=== PATIENT | female | born 1950 | race Caucasian/White ===

== ENCOUNTER 2017-12-25 08:30 | Outpatient (RCR) | payer OTHER, SELFPAY ==
--- NOTE | 2017-12-19 08:00 | IE_ITS ---
Date: December 19, 2017 Referring: LICHA Hayes M.D. Diagnosis: Back pain P.T. Diagnosis: Same SUBJECTIVE: History of Present Illness: Marianne complains of intermittent discomfort throughout the lower lumbar area. This migrates to the pelvic brim bilaterally. This is generally worse with weight bearing activities, but is also presence in sitting. Best with lying. Does not generally interfere with sleeping pattern. Has some mild a.m. stiffness, but her symptoms are generally worse towards the latter part of the day. A 67 year old female with spinal stenosis, s/p laminectomy/discectomy in December of 2016. This made a significant difference in her symptoms, until she fell in March, had some mild lumbago following this, but then it resolves after a week or so. She fell again in May when slipping on ice and went through the same routine, although back pain lasted for a couple weeks this time. In June, she started developing an insidious onset of lumbago and gradually intensified some. Pain Ratin/10 early in the day and then increases to a 7-9/10 in the latter part of the day. Pain Location: Throughout the lower lumbar area into the pelvic brim. Current Level of Function: Can perform her ADL's for the most part, but this increases her pain. She avoids lifting heavier items and pain prevents her from walking more than a mile. Discomfort also occurs when traveling, or increases with traveling. Previous Treatment: S/p laminectomy/discectomy 2016. 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 Comorbidities: Hypertension, diabetes, chronic migraines, thyroid cancer. Falls in the last year: ____ No __X__Yes - How many? __ 2 due to slipping on ice.__ - (if over 2, balance SM needs to be completed) Reported hospitalizations in the last year - __X__ No ____ Yes - Dates of admission/reason: Medications: Refer to Zully Pinto's medication list in EMR. Quality of Life: ____ Excellent __X__ Good ____ Fair ____ Poor Standardized Measures: MOLBPDQ: __16%__ OBJECTIVE: Posture: Has reduced lumbar lordosis, (-) lateral shift. Thoracic kyphosis with protracted scapula, slightly anterolateral. Observation: (behavior, atrophy, skin color, etc.) Pleasant, no abnormal pain behavior noted, if anything she tends to down play it. Gait: Ambulates without assistive device, able to walk on hills and toes without weakness. Palpation: Has increased tone and tenderness through L QL as well as piriformis bilaterally. Non-tender throughout the lumbar paraspinals, or the gluts. Edema: (-) warmth. Incision is well healed. ROM: Lumbar movements in upright position flexion distance between fingertips and floor is approximately 1-2 with end range drawing throughout the posterior thigh and calf. Extension is limited to approximately 15 degrees with mild discomfort when assuming the extended position to upright position. Sidebending is non-irritable, but again transition back to upright position with sidebending to the L is uncomfortable. She is hypomobile with sidegliding bilaterally. Bilateral hip motion is full and painless with movement. A little tightness with IR on the R, but this is not painful. The talocrural, subtalar and mid tarsal movements are full and painless with movement. Joint Accessory Motion: Has discomfort with PA glides to the lower lumbar segments, specifically over L4-L5. She is non-painful with the upper lumbar, or thoracic segments and over the costovertebral joints. Strength: Has full motor control throughout the LE's. Initially she has some discomfort when performing active prone extension, but this resolves after numerous reps. She has difficulty with breathing diaphragmatically. Neuro: Reflexes symmetrical, Sensation is intact. Motor 5/5. Special Tests: (-) SLR bilaterally with hamstring tightness at 70 degrees, (-) slump test. (-) femoral nerve stretch. Treatment: IE: [id number] Manual therapy: ([id number]). Direct treatment time: 60 mins Total treatment time: 60 mins ASSESSMENT: Patient is a 67-year-old female, referred for PT services with the diagnosis of back pain. Patient presents with clinical signs and symptoms consistent with this diagnosis, as demonstrated by the following impairment level findings: myofascial issues throughout the L QL and piriformis bilaterally. I am hoping that it is mainly limited to the soft tissue structures vs more of a skeletal problem, but as we clear these structures, I will have a better idea. Impairments are contributing to the following functional limitations: Difficulty walking and standing for prolonged periods as well as sitting, which interferes with her ability to also perform her normal ADL's with lifting, etc. . . . Patient is assessed as: __X__ Low 61033 ____ Moderate 15796 ____ High 47579 complexity, based on the following: History: (list): Recent recurrence of her lumbago. See comorbidities and social history. Examination: (list): X See above for functional limitations and impairments. Presentation: Stable . X Evolving Unstable Decision-Making: x Low complexity x Moderate complexity High complexity % Disability based on MOLBPDQ as well as clinical findings. __x__ Patient requires skilled PT intervention to remediate the above functional limitations to return to: __x__ Premorbid level of function _ Prognosis: ____ Excellent __x__ Good ____ Fair ____ Poor STG: __6__ weeks. 1: Clear out the myofascial trigger points as mentioned above. 2: Strengthen the core to decrease her pain in sitting and standing to normalize her functional activities such as walking greater than a mile, standing for prolonged periods, etc. . . LTG: __12__ weeks. 1; Return to premorbid level of function. _ PLAN: Session today consisted of the evaluation along with Andrade tinajero, counterstrain technique to the L QL and piriformis bilaterally along with issuing a written and illustrated HEP consisting of engaging the TA and back extensor along with use of lumbar support with sitting and lumbar flexibility exercises with emphasis on extension. Will see her 2x next week for further mobilization of the soft tissue structures , and core strengthening. Modalities prn. Will modify the program as symptoms dictate. Thank you for this referral. Please do not hesitate to contact me with any questions or concerns regarding this patient's plan of care.
--- NOTE | 2017-12-22 10:54 | PTTR_ITS ---
DATE: 12/22/17 SUBJECTIVE: Marianne stating that she is not good. She has had increasing back pain since the initial evaluation. She reports she would have gone to the emergency room on Friday but she didn't think they would be able to control her pain. She notes lying down is the best position for her. She tried really hard to get through her stretches and it took her all weekend to perform all of them. She is unsure if she is now feeling discomfort down the back of the left leg and if she is it is subtle. OBJECTIVE: Manual therapy: ([id number]). Pt requires increased time to assume prone position. She receives gentle soft tissue work through the lumbar and thoracic spine musculature, QL and gluteals bilaterally. Some tone appreciated on the left QL and gluts and clear this out with trigger point release. Perform skin rolling and cross friction mobilization to the paraspinals musculature. She then receives moist hot pack in the prone position x 10 minutes. After sitting up and walking around post treatment pt notes she does feel a little more comfortable overall but is having some discomfort down the back of her left leg. Direct treatment time: 30 minutes Total treatment time: 40 minutes Geraldine Chavis PTA
--- NOTE | 2017-12-25 11:28 | PTTR_ITS ---
DATE: 12/25/17 SUBJECTIVE: Pt stating she is doing slightly better than she was earlier in the week due to the fact that she is just lying around. She did order a new bed and it is coming next week some time. She is also going to start utilizing her TENS unit at home. OBJECTIVE: Manual therapy: ([id number]). Begin in supine with instruction in TrA, PPT and diaphragmatic breathing techniques x 5 breath cycles. Instruct pt in how to complete this at home. In prone position she receives STM techniques focusing on left QL, piriformis, gluteals and lumbar paraspinals. Clear out trigger point in the piriformis on the left. Perform STM to these same structures on the right but with less tone noted and less tenderness. She ends with IFC and moist hot pack in the prone position x 10 minutes at no charge. Direct treatment time: 30 minutes Total treatment time: 40 minutes Geraldine Chavis PTA
== END 2017-12-26 23:59 | disposition home or self-care (01) ==
LOC: PT 08:30
DX: M54.5 Low back pain (principal); M79.1 Myalgia; Z98.890 Other specified postprocedural states
CPT/HCPCS: 97140; 97161

== ENCOUNTER 2018-01-07 01:49 | Outpatient (CLI) | payer OTHER, SELFPAY ==
[2018-01-07 09:11] LABS: INR 1.1 (1.0-3.5); PTT Activated 24.2 sec (21.0-31.4); Prothrombin Time 10.4 sec (9.3-10.8)
[2018-01-07 09:28] LABS: ALT 28 U/L (12-78); AST 18 U/L (15-37); Albumin 3.8 g/dL (3.4-5.0); Alkaline Phosphatase 90 U/L (46-116); BUN 24 mg/dL (7-18); Bilirubin, Total 0.4 mg/dL (0.2-1.0); CREATININE 1.08 mg/dL (0.55-1.02); Calcium 8.8 mg/dL (8.5-10.1); Chloride 108 mmol/L (98-107); Cholesterol 154 mg/dL (50-200); Glucose 134 mg/dL (70-100); HDL Cholesterol 41 mg/dL (40-60); LDL CHOLESTEROL 91 mg/dL (<100); Potassium 4.4 mmol/L (3.5-5.1); Sodium 141 mmol/L (136-145); Triglyceride 134 mg/dL (30-150)
[2018-01-07 09:29] LABS: ESR 16 MM/HR (0-30)
== END 2018-01-07 02:09 ==
PROVIDERS: Visit Provider Naturopath
DX: R47.01 Aphasia (principal); Z86.73 Personal history of transient ischemic attack (TIA), and cerebral infarction without residual deficits; R42 Dizziness and giddiness
CPT/HCPCS: 36415; 80053; 80061; 83721; 85652; 85610; 85730

== ENCOUNTER 2018-02-16 00:25 | Outpatient (CLI) | payer OTHER, SELFPAY ==
[2018-02-16] MEDS: Gadoterate meglumine 20 ML VIAL 11 ML IVP (08:47)
--- NOTE | 2018-02-16 08:55 | DI.MRI_ITS ---
SYMPTOMS/DIAGNOSIS: FAILED BACK SYNDROME, LT LOW BACK PAIN, H/O L4-5 FUSION, M43.26 MRI OF THE LUMBAR SPINE: Comparison is made with [id number]. The patient has undergone posterior fusion at L 4 - 5 since the previous exam. Hardware is in place creating artifact with considerable distortion from the L 4 level through the L 5 - S 1 disc. The L 1 - 2 levels are unremarkable. There is mild disc bulging at L 2 - 3 and mild ligamentous hypertrophy but no significant spinal stenosis or neural foraminal narrowing. The disc bulging is slightly eccentric toward the left. At L 3 - 4, there is a small right sided disc protrusion which may slightly impinge on the exiting nerve root. There are facet degenerative changes and ligamentous hypertrophy causing mild central canal stenosis. The findings do not appear significantly changed. At L 4 - 5 level, there is no significant disc bulging or visible focal disc herniation. There is no significant central canal stenosis or visible neural foraminal narrowing. At L 5 - S 1, there is mild scarring related to previous surgery of the posterior aspect of the thecal sac. There are facet degenerative changes but no significant central canal stenosis or neural foraminal narrowing. The conus medullaris and marrow signal are unremarkable. IMPRESSION: Posterior fusion hardware at L 4 - 5 creates artifact. There is no evidence of a disc herniation, central canal stenosis or significant neural foraminal narrowing. There is a stable small right sided disc protrusion at L 3 - 4.
== END 2018-02-16 00:45 ==
PROVIDERS: Visit Provider Nurse Practitioner Family
DX: M54.5 Low back pain (principal); M43.26 Fusion of spine, lumbar region; M96.1 Postlaminectomy syndrome, not elsewhere classified; M51.06 Intervertebral disc disorders with myelopathy, lumbar region
CPT/HCPCS: 72158

== ENCOUNTER 2018-05-05 07:48 | Outpatient (CLI) | payer OTHER, SELFPAY ==
--- NOTE | 2018-05-05 06:00 | DI.RAD_ITS ---
SYMPTOMS/DIAGNOSIS: LUMBAR RADICULOPATHY PAIN CLINIC LUMBAR SPINE: Fluoroscopy Time: 38.7 sec, 5.69 mGy Fluoroscopy was utilized by Dr. Ordaz during the performance of a lumbar epidural steroid injection. Please refer to the procedure report for complete details.
[2018-05-05 08:00] VITALS: BP 132/75; PULSE 58; RESP 22; TEMP 36.1; O2SAT 97
--- NOTE | 2018-05-05 08:33 | PDOC.PAIN ---
Pain Clinic Procedure Note Current Active Problems Problem Status Onset Lumbar radiculitis Acute CANDAL EPIDURAL STEROID WITH CATHETER INJECTION PROCEDURE NOTE COMMENTS: I did review her note with Ms. Meyers from 04/09/18 and her recent lumbar spine MRI. She has been off of Plavix for 7 days and her blood sugars are running in the low 100's with no recent spikes. DX: Lumbosacral radiculopathy NEELIMA CASTANO has been referred to the [facility] for lumbar epidural steroid injection. Patient was greeted by the nurse who verified patients name and . Patient was then taken to the fluoroscopy suite. Patient was interviewed and the medical record reviewed. There were no medical, pharmacologic, radiographic, or other structural contraindications to attempting fluoroscopically guided lumbar epidural steroid injection. Risks and expected side effects as well as potential benefits of the procedure were reviewed and voiced concerns addressed. The patient consent form was signed and witnessed. Standard time-out procedure was performed. Patient was placed in the prone position on the fluoroscopy table and automated blood pressure cuff and pulse oximeter applied. The skin entry point for entering/approaching the epidural space at the sacral hiatus and marked. Following thorough chlorhexadine preparation of the skin and draping and 1% lidocaine infiltration of the skin entry point and subcutaneous tissues, a 17 gauge Touhy needle was placed under fluoroscopic guidance and with loss of resistance technique into the epidural space. Needle tip placement and depth were aided and confirmed by fluoroscopy. There was no paresthesia or return of blood or CSF through the needle. An Arrow cath was thread to the L5-S1 interspace and 1 cc's of Omnipaque 240 was injected with clear epidural spread confirmed with fluoroscopy. 80mg depomedrol was injected. There was not any unusual discomfort expressed. Vital signs were stable throughout the procedure and were as recorded in nursing records. Follow up plans and appointments were discussed.Post procedure instruction was given as documented in nursing records and having met discharge criteria and was discharged from the [facility]. COMMENTS: This procedure can be completed up to 3 times per 12 months if it is found to be helpful
[2018-05-05 08:44] VITALS: BP 130/70; PULSE 70; RESP 18; O2SAT 98
[2018-05-05] MEDS: Omnipaque 240 MG/ML 50 ML BTL IJ (08:45)
[2018-05-05] MEDS: methylPREDNISolone ACETATE 80 MG/ML VIAL IM (08:46)
== END 2018-05-05 08:08 ==
PROVIDERS: Visit Provider Preventive Medicine Occupational Medicine
DX: M54.16 Radiculopathy, lumbar region (principal)
CPT/HCPCS: 62323; 72100; J1040; Q9967

== ENCOUNTER 2018-05-14 02:01 | Outpatient (CLI) | payer OTHER, SELFPAY ==
[2018-05-14 09:11] LABS: Hemoglobin A1C 6.4 % (4.5-6.2)
[2018-05-14 09:59] LABS: ALT 25 U/L (12-78); AST 16 U/L (15-37); Alkaline Phosphatase 78 U/L (46-116); Anion Gap 13.1 mmol/L (3-11); BUN 18 mg/dL (7-18); Bilirubin, Total 0.4 mg/dL (0.2-1.0); CO2 24.9 mmol/L (21.0-32.0); CREATININE 0.96 mg/dL (0.55-1.02); Calcium 9.3 mg/dL (8.5-10.1); Chloride 104 mmol/L (98-107); Estimated GFR 57.63 (mL/min/1.73m2); Glucose 107 mg/dL (70-100); Potassium 3.8 mmol/L (3.5-5.1); Sodium 142 mmol/L (136-145); TSH (W/Ref FT4) 0.04 uIU/mL (0.358-3.74); Total Protein 7.2 g/dL (6.4-8.2)
[2018-05-14 10:19] LABS: Vitamin B12 393 pg/mL (193-986)
[2018-05-14 10:32] LABS: FREE T4 1.36 ng/dL (0.76-1.46)
[2018-05-14 10:48] LABS: Cholesterol 157 mg/dL (50-200); HDL Cholesterol 44 mg/dL (40-60); LDL CHOLESTEROL 84 mg/dL (<100); Triglyceride 178 mg/dL (30-150)
== END 2018-05-14 02:21 ==
PROVIDERS: Psychiatry & Neurology Neurology
DX: E03.9 Hypothyroidism, unspecified (principal); E11.9 Type 2 diabetes mellitus without complications; E78.5 Hyperlipidemia, unspecified; I10 Essential (primary) hypertension; R41.3 Other amnesia
CPT/HCPCS: 36415; 80053; 80061; 83721; 82607; 83036; 84439; 84443

== ENCOUNTER 2018-05-27 05:12 | Outpatient (CLI) | payer OTHER, SELFPAY ==
--- NOTE | 2018-05-27 08:30 | ETT_ITS ---
*[facility]* *[facility]* [address] [place] [address] Stress Electrocardiography Aaron protocol Date of study: 05/27/2018 *PATIENT PRESENTATION* Height: 149.9cm (59in) Blood Pressure: Weight: 57.3kg (126lb) BSA: 1.56m^2 Referring physician: Zully Pinto Ordering physician: Zully Pinto Impressions: Normal study after maximal exercise. Summary: 1. Stress ECG conclusions: The stress ECG is negative. Al treadmill score: 4. This score predicts a moderate risk of cardiac events. 2. Stress: The target heart rate was achieved. The heart rate response to stress is normal. There is a normal resting blood pressure with an appropriate response to stress. The patient experienced no chest pain during stress. Exercise capacity is average for age. 3. Treadmill exercise testing was performed using the Aaron protocol. The patient exercised for 4 min, to protocol stage 2, to a maximal work rate of 5.8mets. Exercise was terminated due to fatigue. Recommendations: Consider nuclear stress test for further risk stratification if strong suspicion for CAD. Indication: R07.89, Appropriate Use Criteria: A (Appropriate). History: REASON FOR TESTING: PATIENT REPORTS MILD CHEST PAIN OVER THE LAST 6 WEEKS. OCCASIONALLY SHE WILL HAVE BACK PAIN WITH THE CHEST PAIN AND ONLY ONCE HAD PAIN IN ARM. SHE DENIES CHEST PAIN/PRESSURE UPON ARRIVAL TO STRESS TEST THIS MORNING. SMOKING STATUS: NEVER. EXERCISE ROUTINE: PATIENT GOES TO SENIOR EXERCISE CLASSES TWICE A WEEK AND 20 MINUTE WALK WITH DOG DAILY. Risk factors: Family history of coronary artery disease. Hypertension. Diabetes mellitus. Dyslipidemia. Cholesterol: 157mg/dl. HDL: 44mg/dl. LDL: 84mg/dl. Triglycerides: 178mg/dl. ALLERGIES: PROCARDIA, HOUSE DUST, FUR. MEDICATIONS: CALCIUM CARBONATE + VITAMIN D BID, CENTRUM SILVER DAILY,TYLENOL ARTHRITIS 650 MG PRN, PROMETHAZINE 25 MG PRN, PLAVIX 75 MG DAILY, OMEPRAZOLE 20 MG DAILY, TOPAMAX 150 MG HS, LEVOTHYROXINE 150 MCG DAILY, TRAZODONE 75 HS, VITAMIN C 500 MG DAILY, METOPROLOL TARTRATE 25 MG BID, BUTORPHANOL TARTRATE NASAL SPRAY PRN, METFORMIN ER 500 MG BID, ELUXADOLINE 100 MG BID, TOPIRAMATE 50 MG HS, DICYCLOMINE 10 MG BID, ATROVASTATIN 40 MG DAILY, CLOBETASOL 0.05% TOPICAL BID, DULOXETINE 60 MG DAILY, LOSARTAN 100 MG DAILY, Protocol: Aaron protocol. Baseline ECG: SINUS RHYTHM. HEART RATE 80 BPM. T WAVE INVERSIONS IN LEADS V1 AND V2. Normal ECG. Stress protocol: + +---+ + !Stage !HR !BP (mmHg) ! + +---+ + !Baseline supine !80 !130/70 (90) ! + +---+ + !Baseline standing !100!138/80 (99) ! + +---+ + !Stage I; 1.7mph, 10degrees; 3 min !129!150/70 (97) ! + +---+ + !Stage II; 2.5mph, 12degrees; 3 min!146! ! + +---+ + !Peak stress !152! ! + +---+ + !Immediate post stress !---!180/84 (116)! + +---+ + !Recovery; 3 min !96 !148/80 (103)! + +---+ + !Recovery; 6 min !89 !138/80 (99) ! + +---+ + * Stress results: STRESS TEST ENDED IN 4 MINUTES 1 SECOND DUE TO FATIGUE AND SOB. NORMAL HEART RATE AND BLOOD PRESSURE RESPONSE TO EXERCISE TESTING. MAX HEART RATE: 152 100 % OF TARGET HEART RATE. MET'S: 5.82. OCCASIONAL PVC'S NO ANGINA. T WAVE INVERSIONS IN V1 AND V2 AT BASELINE. NO SIGNIFICANT ST SEGMENT CHANGES. FUNCTIONAL CAPACITY: AVERAGE CAPACITY. Maximal heart rate during stress was 152bpm (101% of maximal predicted heart rate). The maximal predicted heart rate was 151bpm. The target heart rate was achieved. The heart rate response to stress is normal. There is a normal resting blood pressure with an appropriate response to stress. The rate-pressure product for the peak heart rate and blood pressure was 01583re Hg/min. The patient experienced no chest pain during stress. Exercise capacity is average for age. Stress ECG: The stress ECG is negative. Al treadmill score: 4. This score predicts a moderate risk of cardiac events. Study data: Kurt Claudio MD supervised and was readily available during the procedure. This study was interpreted by [facility]. Study status: Routine. Consent: The risks, benefits, and alternatives to the procedure were explained to the patient and informed consent was obtained. Procedure: Initial setup. A baseline ECG was recorded. Surface ECG leads and manual cuff blood pressure measurements were monitored. Heart sounds: Normal. Lung sounds: Normal. Treadmill exercise testing was performed using the Aaron protocol. The patient exercised for 4 min, to protocol stage 2, to a maximal work rate of 5.8mets. Exercise was terminated due to fatigue. Study completion: The patient tolerated the procedure well and was discharged from the lab. Discharge: The patient left the laboratory in stable condition. Birthdate: Patient birthdate: 1950. Sex: Gender: female. Study date: Study date: 05/27/2018. Study time: 08:30 AM. Signature Documentation: The Stress ECG portion of this study was interpreted by Kurt Claudio MD. Electronically signed by Kurt Claudio 05/27/2018 09:50
== END 2018-05-27 05:32 ==
DX: R07.89 Other chest pain (principal); I10 Essential (primary) hypertension; R53.83 Other fatigue; E78.5 Hyperlipidemia, unspecified
CPT/HCPCS: 93017

== ENCOUNTER 2018-05-28 00:41 | Outpatient (CLI) | payer OTHER, SELFPAY ==
--- NOTE | 2018-05-28 10:33 | MERGE_ITS ---
*[facility]* *[facility]* [address] [place] [address] Date of study: 05/28/2018 Transthoracic Echocardiography M-mode, complete 2D, complete spectral Doppler, and color Doppler *STUDY CONCLUSIONS* Summary: 1. Study data: Comparison was made to the study of 05/08/2012. 2. Left ventricle: The cavity size was normal. Systolic function was normal. The estimated ejection fraction was 60-65%. Some parameters suggest diastolic dysfunction. Doppler parameters are consistent with high ventricular filling pressure. 3. Aortic valve: There was mild regurgitation. 4. Right ventricle: The cavity size was normal. Wall thickness was normal. Systolic function was normal. 5. Atrial septum: No defect or patent foramen ovale was identified. 6. Pulmonary arteries: Pulmonary systolic pressure was in the range of 25mm Hg to 35mm Hg. 7. Inferior vena cava: The vessel was patent and normal in size. The respirophasic diameter changes were in the normal range (greater than or equal to 50%), consistent with normal central venous pressure. *PATIENT PRESENTATION* Height: 149.9cm ((59in) ) S/D Pressure: 152 / 72 Weight: 55.3kg ((121.7lb) ) BSA: 1.53m^2 Test start time: 10:45 AM. Test stop time: 11:40 AM. PERFORMING Unknown PERFORMING [facility] ORDERING Zully Pinto REFERRING Zully Pinto ALUMNI SECRETARY RT Colt (R)(CT), PUSHPA *PROCEDURE DATA* Procedure information: The patient was identified by two identifiers. This study was interpreted by [facility]. Pertinent images and digital data are archived for permanent storage and are available for subsequent review. Comparison was made to the study of 05/08/2012. Study status: Routine. Transthoracic echocardiography. M-mode, complete 2D, complete spectral Doppler, and color Doppler. A Transthoracic Echocardiogram was performed. Scanning was performed from the parasternal, apical, subcostal, and suprasternal notch acoustic windows. Images were obtained using an [id number] cardiac ultrasound machine. Image quality was adequate. Study completion: The patient tolerated the procedure well. History: PMH: Fatigue, chest discomfort, hypertension. *CARDIAC ANATOMY* Left ventricle: The cavity size was normal. Systolic function was normal. The estimated ejection fraction was 60-65%. The tissue Doppler parameters were abnormal. Some parameters suggest diastolic dysfunction. Doppler parameters are consistent with high ventricular filling pressure. Aortic valve: Trileaflet. Doppler: There was no stenosis. There was mild regurgitation. VTI ratio of LVOT to aortic valve: 0.77. Valve area (VTI): 2.3cm^2. Indexed valve area (VTI): 1.5cm^2/m^2. Peak velocity ratio of LVOT to aortic valve: 0.74. Valve area (Vmax): 2.2cm^2. Indexed valve area (Vmax): 1.4cm^2/m^2. Mean velocity ratio of LVOT to aortic valve: 0.71. Valve area (Vmean): 2.1cm^2. Indexed valve area (Vmean): 1.4cm^2/m^2. Mean gradient (S): 3.5mm Hg. Peak gradient (S): 6.8mm Hg. Aorta: Aortic root: The aortic root was normal in size. Ascending aorta: The ascending aorta was moderately dilated. Mitral valve: Doppler: There was no evidence for stenosis. There was trivial regurgitation. Valve area by pressure half-time: 2.8cm^2. Indexed valve area by pressure half-time: 1.8cm^2/m^2. Peak gradient (D): 2.3mm Hg. Left atrium: The atrium was normal in size. Atrial septum: No defect or patent foramen ovale was identified. Right ventricle: The cavity size was normal. Wall thickness was normal. Systolic function was normal. Pulmonic valve: Doppler: There was no evidence for stenosis. There was no significant regurgitation. Tricuspid valve: Doppler: There was mild regurgitation. Pulmonary artery: Poorly visualized. Pulmonary systolic pressure was in the range of 25mm Hg to 35mm Hg. Right atrium: The atrium was normal in size. Pericardium: There was no pericardial effusion. Systemic veins: Inferior vena cava: Well visualized. The vessel was patent and normal in size. The respirophasic diameter changes were in the normal range (greater than or equal to 50%), consistent with normal central venous pressure. Measurements Left ventricle Value Reference LV ID, ED, PLAX 4.8 cm 3.5 - 6.0 LV ID, ES, PLAX 3.1 cm 2.1 - 4.0 LV PW thickness, ED, PLAX 0.7 cm LV end-diastolic volume, 1-p A2C 50 ml LV ejection fraction, 1-p A2C 53 % LV end-diastolic volume, 1-p A4C 63 ml LV ejection fraction, 1-p A4C 54 % LV e', lateral 0.045 m/sec LV E/e', lateral 17 LV e', medial 0.053 m/sec LV E/e', medial 14 LV e', average 0.049 m/sec LV E/e', average 16 Ventricular septum Value Reference IVS thickness, ED, PLAX 0.9 cm LVOT Value Reference LVOT ID, A-P 1.9 cm LVOT area 3 cm^2 LVOT peak velocity, S 0.97 m/sec LVOT mean velocity, S 0.63 m/sec LVOT VTI, S 19.3 cm LVOT peak gradient, S 3.7 mm Hg LVOT mean gradient, S 1.9 mm Hg Stroke volume (SV), LVOT DP 57 ml Stroke index (SV/bsa), LVOT DP 38 ml/m^2 Aortic valve Value Reference Aortic valve peak velocity, S 1.3 m/sec Aortic valve mean velocity, S 0.89 m/sec Aortic valve VTI, S 25.0 cm Aortic mean gradient, S 3.5 mm Hg Aortic peak gradient, S 6.8 mm Hg VTI ratio, LVOT/AV 0.77 Aortic valve area, VTI 2.3 cm^2 Velocity ratio, peak, LVOT/AV 0.74 Aortic valve area, peak velocity 2.2 cm^2 Velocity ratio, mean, LVOT/AV 0.71 Aortic valve area, mean velocity 2.1 cm^2 Aortic valve area/bsa, mean velocity 1.4 cm^2/m^2 Aorta Value Reference Aortic root ID, ED 3.0 cm Ascending aorta ID, A-P, S 3.6 cm Left atrium Value Reference LA ID, A-P, ES 3.8 cm LA ID/bsa, A-P (H) 2.5 cm/m^2 <=2.2 LA area, ES, A4C 18 cm^2 8.8 - 23.4 LA area, ES, A2C 18 cm^2 LA volume/bsa, ES, 1-p A4C 37 ml/m^2 LA volume, ES, 2-p 49 ml LA volume/bsa, ES, 2-p 32 ml/m^2 LA/aortic root ratio 1.27 Mitral valve Value Reference Mitral E-wave peak velocity 0.76 m/sec Mitral A-wave peak velocity 1 m/sec Mitral deceleration time (H) 270 ms 150 - 230 Mitral pressure half-time 78 ms Mitral peak gradient, D 2.3 mm Hg Mitral E/A ratio, peak 0.75 Mitral valve area, PHT, DP 2.8 cm^2 Tricuspid valve Value Reference Tricuspid regurg peak velocity 2.5 m/sec Tricuspid peak RV-RA gradient 25.9 mm Hg Right atrium Value Reference RA area, ES, A4C 12.8 cm^2 8.3 - 19.5 Legend: (L) and (H) yudy values outside specified reference range. I have personally reviewed the images and have reviewed and edited the reported findings. Electronically signed by Danny Jackson MD 05/28/2018 13:04
== END 2018-05-28 01:01 ==
DX: R07.89 Other chest pain (principal); I10 Essential (primary) hypertension; R53.83 Other fatigue; I35.1 Nonrheumatic aortic (valve) insufficiency; E78.5 Hyperlipidemia, unspecified
CPT/HCPCS: 93306

== ENCOUNTER 2018-06-29 01:01 | Outpatient (CLI) | payer OTHER, SELFPAY ==
--- NOTE | 2018-06-29 10:30 | DI.MAMMO_ITS ---
SYMPTOMS/DIAGNOSIS: SCREENING, Z12.31 MAMMOGRAM: Mammograms were interpreted according to the usual protocol including computer analysis with CAD system, tomosynthesis and C view imaging. Comparison is made with exams from 2014 through 2018. The breasts are composed of scattered fibroglandular densities, breast density B. No suspicious masses or suspicious microcalcifications are seen. There has been no significant change. IMPRESSION: Category I, negative mammogram. Yearly screening mammography is recommended. [facility] ASSESSMENT OF FINDINGS: Negative. Category 1. Patient will receive a letter notifying them of these results. BI-RADS category B. There are scattered areas of fibroglandular density.
== END 2018-06-29 01:21 ==
DX: Z12.31 Encounter for screening mammogram for malignant neoplasm of breast (principal)
CPT/HCPCS: 77063; 77067

== ENCOUNTER 2018-10-16 08:03 | Outpatient (CLI) | payer OTHER, SELFPAY ==
[2018-10-16 08:47] LABS: HCT 38.2 % (36.0-46.0); HGB 12.2 g/dL (12.0-15.5); Mean Corp. HGB Concentration 31.9 g/dL (32.0-36.0); Mean Corpuscular Hemoglobin 28.8 pg (27.0-33.0); Mean Corpuscular Volume 90.3 fL (80-95); Mean Platelet Volume 10.1 fL (8.0-11.0); Platelet Count 428 x1000/uL (130-400); RBC 4.23 m/cumm (4.00-5.20); RBC Distribution Width 13.7 % (11.7-14.6); White Blood Cell Count 6.93 k/cumm (4.4-10.8)
[2018-10-16 09:43] LABS: Iron 66 ug/dL (50-175); Total Iron Binding Capacity 404 ug/dL (250-450); Transferrin Sat 16 % (15-50)
[2018-10-16 09:52] LABS: Anion Gap 12.3 mmol/L (3-11); BUN 26 mg/dL (7-18); CO2 23.7 mmol/L (21.0-32.0); CREATININE 0.94 mg/dL (0.55-1.02); Calcium 8.9 mg/dL (8.5-10.1); Chloride 107 mmol/L (98-107); Estimated GFR 59.04 (mL/min/1.73m2); Glucose 116 mg/dL (70-100); Potassium 4.5 mmol/L (3.5-5.1); Sodium 143 mmol/L (136-145); TSH (W/Ref FT4) 0.05 uIU/mL (0.358-3.74)
[2018-10-16 10:09] LABS: FREE T4 1.26 ng/dL (0.76-1.46)
== END 2018-10-16 08:23 ==
DX: E03.9 Hypothyroidism, unspecified (principal); G47.00 Insomnia, unspecified; R53.83 Other fatigue; D64.9 Anemia, unspecified; I10 Essential (primary) hypertension
CPT/HCPCS: 36415; 80048; 85027; 83540; 83550; 84439; 84443

== ENCOUNTER 2019-06-03 02:37 | Outpatient (CLI) | payer OTHER, SELFPAY ==
[2019-06-03 08:27] LABS: HCT 39.1 % (36.0-46.0); HGB 12.7 g/dL (12.0-15.5); Mean Corp. HGB Concentration 32.5 g/dL (32.0-36.0); Mean Corpuscular Hemoglobin 29.9 pg (27.0-33.0); Mean Platelet Volume 9.8 fL (8.0-11.0); Platelet Count 464 x1000/uL (130-400); RBC 4.25 m/cumm (4.00-5.20); RBC Distribution Width 15.4 % (11.7-14.6); White Blood Cell Count 9.12 k/cumm (4.4-10.8)
[2019-06-03 09:20] LABS: TSH (W/Ref FT4) 0.13 uIU/mL (0.36-3.74)
[2019-06-03 09:36] LABS: FREE T4 1.33 ng/dL (0.76-1.46)
[2019-06-03 16:54] LABS: ALT 24 U/L (14-59); AST 21 U/L (15-37); Albumin 3.9 g/dL (3.4-5.0); Alkaline Phosphatase 95 U/L (46-116); Anion Gap 14.3 mmol/L (3-11); BUN 22 mg/dL (7-18); Bilirubin, Total 0.3 mg/dL (0.2-1.0); CO2 23.7 mmol/L (21.0-32.0); CREATININE 1.13 mg/dL (0.55-1.02); Calcium 8.7 mg/dL (8.5-10.1); Chloride 106 mmol/L (98-107); Glucose 115 mg/dL (74-106); Potassium 4.3 mmol/L (3.5-5.1); Sodium 144 mmol/L (136-145); Total Protein 7.1 g/dL (6.4-8.2)
== END 2019-06-03 02:57 ==
DX: D50.9 Iron deficiency anemia, unspecified (principal); D64.9 Anemia, unspecified; E03.9 Hypothyroidism, unspecified; I10 Essential (primary) hypertension; E11.9 Type 2 diabetes mellitus without complications; R41.3 Other amnesia
CPT/HCPCS: 36415; 80053; 85027; 84439; 84443

== ENCOUNTER 2019-07-08 01:45 | Outpatient (CLI) | payer OTHER, SELFPAY ==
--- NOTE | 2019-07-08 11:00 | DI.MAMMO_ITS ---
EXAM: MAMMO SCREENING CLINICAL HISTORY: screening,z12.39 TECHNIQUE: Mammograms were interpreted according to the usual protocol including computer analysis w ith CAD system, tomosynthesis and C-view imaging. COMPARISON: 2009 through 2018 FINDINGS: The breasts are composed of scattered fibroglandular densities, Breast Density category B. No suspicious masses or suspicious microcalcifications are seen. No skin thickening or abnormal axillary lymph nodes are seen. There has been no significant change from prior exams. IMPRESSION: BI-RADS Category 1 - Negative. Yearly screening mammography is recommended. Breast Density - Category B - Scattered areas of fibroglandular density
== END 2019-07-08 02:05 ==
DX: Z12.31 Encounter for screening mammogram for malignant neoplasm of breast (principal)
CPT/HCPCS: 77063; 77067

== ENCOUNTER 2019-10-17 15:44 | Emergency (ER) | payer OTHER, SELFPAY ==
[2019-10-17] VITALS (46 sets, daily range): BP systolic 96–160; BP diastolic 56–117; PULSE 57–88; RESP 11–25; TEMP 37; O2SAT 92–98
--- NOTE | 2019-10-17 16:15 | DI.CT_ITS ---
EXAM: CT HEAD - STROKE PROTOCOL CLINICAL HISTORY: concern for cva, difficulty with rapid alternating. TECHNIQUE: Imaging Protocol: Axial computed tomography images with coronal and sagittal reformatted images were created and reviewed COMPARISON: No exams were available for comparison FINDINGS: Ventricles and Extra axial spaces: Normal in size and morphology for the patient's age. Hemorrhage: None. Cerebral parenchyma: Old right basal gangliar and left lacunar infarcts. No acute territorial infarc t. Small vessel ischemic disease. Midline shift: None. Brainstem/Cerebellum: Normal. Calvarium: Normal. Visualized Paranasal sinuses/Mastoids: Clear. Soft Tissues: Unremarkable. IMPRESSION: No acute intracranial process. RADIATION DOSE DELIVERED: 645.17mGy.cm Total DLP DATA REPOSITORY: All CT scans at this facility are submitted to the National Radiology Data Registry (NRDR) Dose Index Registry (DIR) with the [employer] (A[employer]). RADIATION OPTIMIZATION: All CT scans at this facility use at least one of these dose optimization te chniques: automated exposure control; mA and/or kV adjustment per patient size (includes targeted exa ms where dose is matched to clinical indication); or iterative reconstruction.
[2019-10-17 16:46] LABS: Abs Immature Grans 0.02 k/cumm (0.0-0.09); Absolute Basophil Count 0.03 k/cumm (0.0-0.2); Absolute Eosinophil Count 0.24 k/cumm (0.0-0.7); Absolute Lymphocyte Count 3.22 k/cumm (1.2-3.4); Absolute Monocyte Count 0.82 k/cumm (0.11-0.7); Absolute Neutrophil Count 4.47 k/cumm (1.2-6.7); Basophils % 0.3; Eosinophils % 2.7; HCT 41.4 % (36.0-46.0); HGB 13.7 g/dL (12.0-15.5); Immature Grans % 0.2 %; Lymphocytes % 36.6; Mean Corp. HGB Concentration 33.1 g/dL (32.0-36.0); Mean Corpuscular Hemoglobin 30.9 pg (27.0-33.0); Mean Corpuscular Volume 93.2 fL (80-95); Mean Platelet Volume 10.1 fL (8.0-11.0); Monocytes % 9.3; Neutrophils % 50.9; Platelet Count 427 x1000/uL (130-400); RBC 4.44 m/cumm (4.00-5.20); RBC Distribution Width 13.1 % (11.7-14.6)
--- NOTE | 2019-10-17 16:46 | ED.GENADUL_ITS ---
Discharge Plan Disposition Patient Disposition: [facility] Condition: Serious Discharge Details Chief Complaint: CVA/TIA Clinical Impression: Acute CVA (cerebrovascular accident) Primary Care Provider: Zully Pinto ED Provider: Varinder Pringle Home Meds and New Rx's Prescriptions: No Action nitroglycerin 0.4 mg tablet, sublingual 0.4 mg SL Q5-15M PRN (Reason: chest pain) Qty: 7 RF: 1 levothyroxine 150 mcg tablet 150 mcg PO as directed RF: 0 ascorbic acid (vitamin C) 500 mg tablet 500 mg PO DAILY RF: 0 dicyclomine 20 mg tablet 20 mg PO TID RF: 0 ciprofloxacin HCl [Cipro] 250 mg tablet 250 mg PO TID RF: 0 pantoprazole 20 mg tablet,delayed release (DR/EC) 20 mg PO DAILY Qty: 90 RF: 3 calcium carbonate-vitamin D3 [Calcium 500 + D] 1 EACH tablet 1 ea PO BID RF: 0 acetaminophen [Tylenol Arthritis Pain] 650 MG tablet extended release 650 mg PO PRN RF: 0 CENTRUM SILVER TABLET 1 EACH tablet 1 ea PO DAILY RF: 0 (DME) blood sugar diagnostic [FreeStyle Lite Strips] 1 EACH strip 1 ea Miscellaneous DAILY Qty: 100 RF: 4 (DME) lancing device [BD Lancet Device] 1 EACH misc 1 ea Miscellaneous DAILY Qty: 100 RF: 4 trazodone 50 mg tablet 25 - 75 mg PO HS Qty: 135 RF: 3 metoprolol tartrate 25 mg tablet 25 mg PO BID Qty: 180 RF: 3 metformin 500 mg tablet,ER anum.retention 24 hr 500 mg PO BID Qty: 180 RF: 3 clobetasol 0.05 % ointment 1 applic TP BID Qty: 45 RF: 2 topiramate [Topamax] 50 mg tablet 50 mg PO HS Qty: 90 RF: 3 clopidogrel [Plavix] 75 mg tablet 75 mg PO DAILY Qty: 90 RF: 3 losartan [Cozaar] 100 mg tablet 100 mg PO DAILY Qty: 90 RF: 4 Viberzi 100 mg tablet 100 mg PO BID MDD 200mg Qty: 60 RF: 4 butorphanol tartrate 10 mg/mL spray,non-aerosol 1 spray NS Q3H PRN Qty: 2.5 RF: 2 atorvastatin 40 mg tablet 40 mg PO DAILY Qty: 90 RF: 3 gabapentin 300 mg capsule 300 mg PO BID Qty: 60 RF: 2 topiramate [Topamax] 100 mg tablet 100 mg PO HS Qty: 90 RF: 3 duloxetine 30 mg capsule,delayed release(DR/EC) 30 mg PO DAILY Qty: 90 RF: 4 promethazine 25 mg Tablet 25 mg PO TID RF: 0 Discharge Data Discharge Date/Time-TO BE ENTERED AT DEPARTURE: 10/17/19 20:53 Medical Decision Making 0??68-year-old female with multiple medical problems including history of prior remote CVA x2, here with difficulty ambulating since waking this morning around 6 AM and also associated blurred vision today. Patient has dysdiadochokinesia. She is hypertensive. Consider posterior CVA. Plan to obtain stat CT of the head. Screening ECG was reviewed and interpreted by me: Atrial rhythm, 74 bpm, left axis deviation, no ischemia, nondiagnostic. --CT head interpreted by radiology: No acute finding. Old right periventricular lacunar infarct. Right basal ganglia old infarct. No intracranial hemorrhage seen. Old left cerebellar lacunar infarct. I initially called Dr. Garay, on-call hospitalist, to admit the patient. Unfortunately no beds available at [facility] at this time. I spoke with the warehouse freight handler who noted staffing issue upstairs and unable to provide staff that at this time. Patient with 5-10 WBCs and positive nitrite. No urinary symptoms. No indication to treat asymptomatic bacteriuria. 1928??I called [facility] transfer center to request neurology transfer. I am waiting for callback from neurologist. 1955??spoke with Dr. Fabian Hernandez at [facility], on-call neurologist, discussed ED presentation and course including diagnostics and she will accept the patient in transfer. Awaiting bed availability. She understands a CTA is pending and we will call and transfer results. She recommended IV fluid. Patient has received normal saline 500 mL bolus and will continue maintenance. She also recommended treating with full dose aspirin and holding Plavix at this time. Lab Data Lab results reviewed: Yes I reviewed the patient's lab results. Labs: 10/17/19 17:40 Urine - Reflex from Ua Urine Culture - Pending Laboratory Tests Range/Units 10/17/19 10/17/19 10/17/19 16:20 16:20 16:20 WBC (4.4-10.8) k/cumm 8.80 RBC (4.00-5.20) m/cumm 4.44 Hgb (12.0-15.5) g/dL 13.7 Hct (36.0-46.0) % 41.4 MCV (80-95) fL 93.2 MCH (27.0-33.0) pg 30.9 MCHC (32.0-36.0) g/dL 33.1 RDW (11.7-14.6) % 13.1 Plt Count (130-400) x1000/uL 427 H MPV (8.0-11.0) fL 10.1 Immature Gran % % 0.2 Neutrophils % 50.9 Lymphocytes % 36.6 Monocytes % 9.3 Eosinophils % 2.7 Basophils % 0.3 Absolute Neutrophils (1.2-6.7) k/cumm 4.47 Absolute Lymphocytes (1.2-3.4) k/cumm 3.22 Absolute Monocytes (0.11-0.7) k/cumm 0.82 H Absolute Eosinophils (0.0-0.7) k/cumm 0.24 Absolute Basophils (0.0-0.2) k/cumm 0.03 PT (9.3-11.0) sec 10.2 INR (0.9-1.1) 1.0 Sodium (136-145) mmol/L 139 Potassium (3.5-5.1) mmol/L 3.9 Chloride (98-107) mmol/L 104 Carbon Dioxide (21.0-32.0) mmol/L 24.4 Anion Gap (3-11) mmol/L 10.6 BUN (7-18) mg/dL 19 H Creatinine (0.55-1.02) mg/dL 1.13 H Estimated GFR/1.73 m2 (mL/min/1.73m2) 47.60 Glucose (74-106) mg/dL 124 H Calcium (8.5-10.1) mg/dL 8.9 Total Bilirubin (0.2-1.0) mg/dL 0.5 AST (15-37) U/L 25 ALT (14-59) U/L 32 Alkaline Phosphatase (46-116) U/L 89 Troponin I (<0.06) ng/mL < 0.05 Total Protein (6.4-8.2) g/dL 7.4 Albumin (3.4-5.0) g/dL 4.0 Urine Color (Yellow) Urine Clarity (Clear) Urine pH (5-8) Ur Specific [place] (1.005-1.025) Urine Protein (Negative) mg/dL Urine Ketones (Negative) mg/dL Urine Blood (Negative) Urine Nitrite (Negative) Urine Bilirubin (Negative) Urine Urobilinogen (Up TO 0.2) EU/dL Ur Leukocyte Esterase (Negative) Urine RBC (0-2) HPF Urine WBC (0-5) HPF Ur Epithelial Cells (Negative) HPF Urine Crystals (Negative) HPF Urine Bacteria (Negative) HPF Urine Casts (Negative) LPF Urine Mucus (Negative) Ur Culture Indicated? Urine Glucose (Negative) mg/dL Range/Units 10/17/19 17:40 WBC (4.4-10.8) k/cumm RBC (4.00-5.20) m/cumm Hgb (12.0-15.5) g/dL Hct (36.0-46.0) % MCV (80-95) fL MCH (27.0-33.0) pg MCHC (32.0-36.0) g/dL RDW (11.7-14.6) % Plt Count (130-400) x1000/uL MPV (8.0-11.0) fL Immature Gran % % Neutrophils % Lymphocytes % Monocytes % Eosinophils % Basophils % Absolute Neutrophils (1.2-6.7) k/cumm Absolute Lymphocytes (1.2-3.4) k/cumm Absolute Monocytes (0.11-0.7) k/cumm Absolute Eosinophils (0.0-0.7) k/cumm Absolute Basophils (0.0-0.2) k/cumm PT (9.3-11.0) sec INR (0.9-1.1) Sodium (136-145) mmol/L Potassium (3.5-5.1) mmol/L Chloride (98-107) mmol/L Carbon Dioxide (21.0-32.0) mmol/L Anion Gap (3-11) mmol/L BUN (7-18) mg/dL Creatinine (0.55-1.02) mg/dL Estimated GFR/1.73 m2 (mL/min/1.73m2) Glucose (74-106) mg/dL Calcium (8.5-10.1) mg/dL Total Bilirubin (0.2-1.0) mg/dL AST (15-37) U/L ALT (14-59) U/L Alkaline Phosphatase (46-116) U/L Troponin I (<0.06) ng/mL Total Protein (6.4-8.2) g/dL Albumin (3.4-5.0) g/dL Urine Color (Yellow) Yellow Urine Clarity (Clear) Sl cloudy Urine pH (5-8) 6.0 Ur Specific [place] (1.005-1.025) 1.015 Urine Protein (Negative) mg/dL Negative Urine Ketones (Negative) mg/dL Negative Urine Blood (Negative) Negative Urine Nitrite (Negative) Positive H Urine Bilirubin (Negative) Negative Urine Urobilinogen (Up TO 0.2) EU/dL 0.2 Ur Leukocyte Esterase (Negative) Small H Urine RBC (0-2) HPF Negative Urine WBC (0-5) HPF 5-10 Ur Epithelial Cells (Negative) HPF Negative Urine Crystals (Negative) HPF Negative Urine Bacteria (Negative) HPF Many Urine Casts (Negative) LPF Negative Urine Mucus (Negative) Negative Ur Culture Indicated? Yes Urine Glucose (Negative) mg/dL Negative HPI General Mode of arrival: ambulatory . Date/Time Provider Initiated Documentation: 10/17/19 16:06 . Limitations to Documentation: no limitations . Information obtained by: patient . HPI Narrative: 68-year-old female with multiple medical problems including history of prior remote CVAs, here with chief complaint of difficulty ambulating. Patient notes last night she went to bed around 6:30 PM. She woke this morning around 6 AM and attempted to ambulate to the bathroom and was unable to do so. She notes she was unsteady on her feet and fell to the floor. Not able to make the toilet she urinated on herself. Patient notes she got back in bed and slept and when she got up again she continued to have difficulty ambulating. Symptoms are moderate to severe. She also notes associated blurry vision, bilateral eyes, that started today. She denies headache. No focal numbness or weakness. No associated fever. No chest pain or abdominal pain. Related Data Home Medications Medication Instructions Recorded Confirmed calcium carbonate-vitamin D3 1 ea PO BID 03/05/13 10/17/19 [Calcium 500 + Vit D 200 Caplet] Centrum Silver Tablet 1 ea PO DAILY 07/06/13 10/17/19 acetaminophen [Tylenol Arthritis] 650 mg PO PRN tab-cap 07/06/13 10/17/19 blood sugar diagnostic [Freestyle #100 strip 04/14/14 01/12/19 Lite Test Strips] lancing device [Lancet Device] #100 ea 04/14/14 01/12/19 ascorbic acid (vitamin C) 500 mg 500 mg PO DAILY 01/20/18 10/17/19 tablet nitroglycerin 0.4 mg sublingual 0.4 mg SL Q5-15M PRN #7 tab 07/14/18 10/17/19 tablet trazodone 50 mg tablet 25 - 75 mg PO HS #135 tab-cap 11/23/18 10/17/19 levothyroxine 150 mcg tablet 150 mcg PO as directed tab-cap 01/12/19 10/17/19 metoprolol tartrate 25 mg tablet 25 mg PO BID #180 tab-cap 01/28/19 10/17/19 metformin 500 mg 24 hr 500 mg PO BID #180 tab 03/16/19 10/17/19 tablet,extended release clobetasol 0.05 % topical ointment 1 applic TP BID #45 gm 03/29/19 10/17/19 topiramate 50 mg tablet 50 mg PO HS #90 tab-cap 04/01/19 10/17/19 clopidogrel 75 mg tablet 75 mg PO DAILY #90 tab-cap 05/31/19 10/17/19 losartan 100 mg tablet 100 mg PO DAILY #90 tab 05/31/19 10/17/19 eluxadoline 100 mg tablet 100 mg PO BID #60 tab MDD 200mg 06/21/19 10/17/19 butorphanol tartrate 10 mg/mL 1 spray NS Q3H PRN #2.5 ml 07/01/19 10/17/19 nasal spray atorvastatin 40 mg tablet 40 mg PO DAILY #90 tab-cap 08/16/19 10/17/19 gabapentin 300 mg capsule 300 mg PO BID #60 cap 08/16/19 10/17/19 topiramate 100 mg tablet 100 mg PO HS #90 tab-cap 10/04/19 10/17/19 promethazine 25 mg PO TID 10/17/19 10/17/19 duloxetine 30 mg capsule,delayed 30 mg PO DAILY #90 cap 10/19/19 release ciprofloxacin HCl 250 mg tablet 250 mg PO TID tab 10/25/19 dicyclomine 20 mg tablet 20 mg PO TID 10/25/19 pantoprazole 20 mg tablet,delayed 20 mg PO DAILY #90 tab 10/25/19 10/25/19 release Previous Rx's Medication Instructions Recorded nitroglycerin 0.4 mg sublingual 0.4 mg SL Q5-15M PRN #7 tab 07/14/18 tablet trazodone 50 mg tablet 25 - 75 mg PO HS #135 tab-cap 11/23/18 metoprolol tartrate 25 mg tablet 25 mg PO BID #180 tab-cap 01/28/19 metformin 500 mg 24 hr 500 mg PO BID #180 tab 03/16/19 tablet,extended release clobetasol 0.05 % topical ointment 1 applic TP BID #45 gm 03/29/19 topiramate 50 mg tablet 50 mg PO HS #90 tab-cap 04/01/19 clopidogrel 75 mg tablet 75 mg PO DAILY #90 tab-cap 05/31/19 losartan 100 mg tablet 100 mg PO DAILY #90 tab 05/31/19 eluxadoline 100 mg tablet 100 mg PO BID #60 tab MDD 200mg 06/21/19 butorphanol tartrate 10 mg/mL 1 spray NS Q3H PRN #2.5 ml 07/01/19 nasal spray atorvastatin 40 mg tablet 40 mg PO DAILY #90 tab-cap 08/16/19 gabapentin 300 mg capsule 300 mg PO BID #60 cap 08/16/19 topiramate 100 mg tablet 100 mg PO HS #90 tab-cap 10/04/19 duloxetine 30 mg capsule,delayed 30 mg PO DAILY #90 cap 10/19/19 release pantoprazole 20 mg tablet,delayed 20 mg PO DAILY #90 tab 10/25/19 release Allergies Allergy/AdvReac Type Severity Reaction Status Date / Time nifedipine [From Procardia] Allergy Severe Cardiac Verified 10/25/19 07:42 Dysrythmia house dust Allergy Mild RHINITIS Verified 10/25/19 07:42 FUR Allergy Uncoded 10/17/19 15:57 General Stated Complaint: CVA/TIA VIKRAM: 2 Review of Systems Constitutional Constitutional: Denies fever(s) Cardiovascular Cardiovascular: Denies chest pain Respiratory Respiratory: Denies cough Gastrointestinal Gastrointestinal: Denies abdominal pain Neurologic Neurologic: Reports as per [facility] Medical History (Updated 10/29/19 @ 10:01 by Zully Pinto NP) Anxiety (Chronic) Atypical migraine (Chronic) Back pain without radiation (Chronic) Chronic migraine (Chronic) Diabetes mellitus, type II (Chronic) Gastroesophageal reflux disease with esophagitis (Chronic) 08/04 EGD; MILD GASTRITIS; ESOPHAGITIS Hx of cervical cancer (Resolved) Hx of thyroid cancer (Resolved) Hyperlipidemia (Chronic 08/27/11) Hypertension (Chronic) Hypothyroidism (Chronic) due to thyroidectomy for thyroid cancer Impacted cerumen of right ear (Acute) Irritable bowel syndrome with diarrhea (Chronic 04/20/15) Memory loss (Chronic) Osteopenia (Chronic 03/07/10) Polyp of colon (Chronic) TUBULAR ADENOMA (2006) repeat 2009, normal Primary insomnia (Chronic 04/20/15) UTI (urinary tract infection) (Acute) Surgical History Colonoscopy - MAC 09/26/09 EGD - MAC (07/29/08) H/O mastoidectomy (Acute) JOINT REPAIR (01/08/06) RIGHT THUMB Thyroid (~02/2012) COMPLETE THYROIDECTOMY, [facility]; - LYMPH NODES Tonsillectomy and adenoidectomy (01/08/06) Vaginal hysterectomy (01/07/86) OVARIES REMAIN Family History Mother , age 92 Diabetes CHF (congestive heart failure) Hyperlipidemia Stroke Hypertension Heart disease Father , age 88 Diabetes Heart disease Lung cancer Skin cancer Sister No problems noted. Sister Essential hypertension Hyperlipidemia Brother , AGE 69 Esophageal cancer Hypertension Brother , AGE 54 Diabetes Hyperlipidemia Brain cancer Hypertension Brother Hyperlipidemia Hypertension Maternal Grandfather , age 67 Stroke Colon cancer Paternal Grandfather , FIRE at age 58. Hypertension Paternal Grandmother , AGE 33 Cancer ?Ovarian Maternal Grandmother , AGE 81 Diabetes Stroke Son No problems noted. Social History Smoking/Tobacco Use Status: Never Alcohol Intake: current Alcohol Intake frequency: a few times a month Alcohol type: wine and hard liquor Drug use: Never Substance use type: does not use Counseling given: No Counseling provided: none Caregiver/Support person: Yes Household members: spouse Housing: house current occupation: [employer] [facility] [facility] Pets and animals: Yes (4) Pets and animals: cat(s), dog(s) and turtle(s) Sexually active: No Do you think of yourself as: straight/heterosexual Current gender identity: female What is your relationship status?: How often do you talk on the phone with friends or family?: twice per week How often do you get together with friends or relatives?: three or more times per week How often do you attend congregational or anabaptist services?: decline to answer Do you belong to any clubs or organized social groups?: no Panel score (0-1 are the most socially isolated patients): 2 What type of physical activity do you participate in: other Details: Senior exercise group Duration: 15-30 minutes/day Frequency: daily [place]/Episcopal: Muslim Special marbella needs: No Seatbelt use: always Drive intox or ride w/intox hazmat cdl a driver: No Do you feel safe at home: Yes Do you feel safe in your relationship?: Yes Additional Social history: 1 grown son, adopted. Exam Const General: cooperative and no acute distress HENMT Mouth: moist mucous membranes Eyes Alignment and Position: alignment normal Sclera: normal sclerae Pupils: PERRL EOM: EOM intact bilaterally and nystagmus (Horizontal nystagmus on left gaze) Neck Neck: trachea midline and supple Resp Auscultation: clear to auscultation bilaterally, no rales, no rhonchi and no wheezes Cardio Rate: regular rate and not tachycardic Rhythm: regular rhythm GI Palpation: soft, not firm, no guarding, no masses, not rigid and nontender Skin General skin exam: no rashes or lesions noted Neuro General: patient alert, patient awake, patient oriented x3 and tone normal Cranial Nerves: PERRL, accommodation normal, EOM intact bilaterally, facial strength normal, tongue midline, able to rotate head bilaterally, able to elevate shoulders bilaterally and nystagmus (Horizontal nystagmus on left gaze) Cognition: normal cognition Speech: speech normal Motor: strength 5/5 throughout Sensory Exam: no sensory deficits noted Coordination: [id number] test normal, rapid alternating movement UE normal (Abnormal) and other (Difficulty with [id number]) Extrem General: no edema Psych Appearance: grossly normal Mental Status: mental status grossly normal Speech and Movement: speech and movement normal Course Vital Signs Vital signs: Vital Signs Temperature 37 C 10/17/19 15:52 Pulse 88 10/17/19 15:52 Respiratory Rate 16 10/17/19 15:52 Blood Pressure 154/114 H 10/17/19 15:52 Pulse Oximetry 96 10/17/19 15:52 Temperature 37 C 10/17/19 15:52 Temperature Source Skin 10/17/19 15:52 Pulse 88 10/17/19 15:52 Respiratory Rate 16 10/17/19 15:52 Respiratory Effort Non-Labored 10/17/19 16:02 Respiratory Depth Normal 10/17/19 16:02 Respiratory Pattern Normal 10/17/19 16:02 Blood Pressure 154/114 H 10/17/19 15:52 Blood Pressure Position Sitting 10/17/19 15:52 Pulse Oximetry 96 10/17/19 15:52 Oxygen Delivery Method Room Air 10/17/19 15:52 Oxygen Flow Rate 0 10/17/19 15:52
[2019-10-17] MEDS: Normal Saline 1,000 ML 125 ML IV (16:50)
[2019-10-17 16:52] LABS: Prothrombin Time 10.2 sec (9.3-11.0)
[2019-10-17 17:00] LABS: ALT 32 U/L (14-59); AST 25 U/L (15-37); Alkaline Phosphatase 89 U/L (46-116); Anion Gap 10.6 mmol/L (3-11); BUN 19 mg/dL (7-18); Bilirubin, Total 0.5 mg/dL (0.2-1.0); CO2 24.4 mmol/L (21.0-32.0); CREATININE 1.13 mg/dL (0.55-1.02); Calcium 8.9 mg/dL (8.5-10.1); Chloride 104 mmol/L (98-107); Glucose 124 mg/dL (74-106); Potassium 3.9 mmol/L (3.5-5.1); Sodium 139 mmol/L (136-145); Total Protein 7.4 g/dL (6.4-8.2)
[2019-10-17 17:07] LABS: Troponin I < 0.05 ng/mL (<0.06)
--- NOTE | 2019-10-17 17:44 | DI.VRAD_ITS ---
PROCEDURE INFORMATION: Exam: CT Head Without Contrast Exam date and time: 10/17/2019 4:35 PM Age: 68 years old Clinical indication: Visual disturbance; Patient HX: Concern for CVA, difficulty w rapid alternating, visual changes TECHNIQUE: Imaging protocol: Computed tomography of the head without contrast. Radiation optimization: All CT scans at this facility use at least one of these dose optimization techniques: automated exposure control; mA and/or kV adjustment per patient size (includes targeted exams where dose is matched to clinical indication); or iterative reconstruction. COMPARISON: CT HEAD WITHOUT CONTRAST 02/25/2013 10:53 AM FINDINGS: Brain: Old right periventricular lacunar infarct. Right basal ganglia old infarct. No intracranial hemorrhage is seen. No acute arterial territory stroke is noted. Old left cerebellar lacunar infarct. Ventricles: Normal. No ventriculomegaly. Bones/joints: Unremarkable. No acute fracture. Sinuses: Visualized sinuses are unremarkable. No fluid levels. Mastoid air cells: Visualized mastoid air cells are well aerated. Soft tissues: Unremarkable. IMPRESSION: No acute finding. Dictated and Authenticated by: Rusty Connell MD. Ordering:JOSEPHINE Reeder MD
[2019-10-17] MEDS: Normal Saline 500 ML IV (17:47)
[2019-10-17 18:05] LABS: Bilirubin Negative (Negative); Blood Negative (Negative); Clarity Sl Cloudy (Clear); Glucose Negative (Negative); Ketones Negative (Negative); Leukocyte Esterase Small (Negative); Nitrite Positive (Negative); Specific Gravity 1.015 (1.005-1.025); Urobilinogen 0.2 EU/dL (Up TO 0.2)
[2019-10-17 18:24] LABS: Bacteria Many HPF (Negative); C & S Indicated? Yes; Casts Negative LPF (Negative); Crystals Negative HPF (Negative); Epithelial Cells Negative HPF (Negative); Mucus Negative (Negative); RBC Negative HPF (0-2)
--- NOTE | 2019-10-17 19:15 | DI.CT_ITS ---
EXAM: CT BRAIN NECK CTA CLINICAL HISTORY: unstable on feet, concern for post circ cva. TECHNIQUE: Imaging Protocol: Axial CT angiography was performed with multi-slice acquisition and mu lti-planar and/or 3D reconstructions. CONTRAST MATERIAL: Intravenous: Omnipaque 350 Contrast volume:85 mL COMPARISON: No exams were available for comparison FINDINGS: CTA Brain W: Internal Carotid Arteries: Petrous: Normal. Cavernous: Normal. Cerebral: Normal. Middle Cerebral Arteries: Right: No aneurysm, occlusion or significant stenosis. Left: No aneurysm, occlusion or significant stenosis. Anterior Cerebral Arteries: Right: No aneurysm, occlusion or significant stenosis. Left: No aneurysm, occlusion or significant stenosis. Posterior cerebral Arteries: Right: No aneurysm, occlusion or significant stenosis. Left: No aneurysm, occlusion or significant stenosis. Vertebral Arteries: Right: No aneurysm, occlusion or significant stenosis. Left: No aneurysm, occlusion or significant stenosis. Basilar Artery: No aneurysm, occlusion or significant stenosis. CTA Neck W: Common Carotid: Right: No aneurysm, occlusion or significant stenosis. Left: No aneurysm, occlusion or significant stenosis. External Carotid: Right: No aneurysm, occlusion or significant stenosis. Left: No aneurysm, occlusion or significant stenosis. Internal Carotid: Right: No aneurysm, occlusion or significant stenosis. Minimal atherosclerosis present at the origin . Left: No aneurysm, occlusion or significant stenosis. Vertebral Artery: Right: No aneurysm, occlusion or significant stenosis. Left: No aneurysm, occlusion or significant stenosis. Lung Apices: Normal. Bones: Moderate degenerative changes are present throughout the cervical spine. Soft Tissues: Normal. IMPRESSION: 1. Normal CTA examination of the [place]. 2. Normal CTA examination of the neck. RADIATION DOSE DELIVERED: 223.05mGy.cm Total DLP DATA REPOSITORY: All CT scans at this facility are submitted to the National Radiology Data Registry (NRDR) Dose Index Registry (DIR) with the [employer] (ACR). RADIATION OPTIMIZATION: All CT scans at this facility use at least one of these dose optimization te chniques: automated exposure control; mA and/or kV adjustment per patient size (includes targeted exa ms where dose is matched to clinical indication); or iterative reconstruction.
[2019-10-17] MEDS: Omnipaque 350 MG/ML 100 ML BTL IJ (20:07)
[2019-10-17] MEDS: Aspirin 325 MG TAB PO (20:26)
[2019-10-17] MEDS: Normal Saline - Diluent 50 ML VIAL IV (20:35)
[2019-10-17] MEDS: Normal Saline Flush 10 ML SYR IVP (20:35)
--- NOTE | 2019-10-17 20:39 | DI.VRAD_ITS ---
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 3D rendering: MIP and/or 3D reconstructed images were created by the technologist. Radiation optimization: All CT scans at this facility use at least one of these dose optimization techniques: automated exposure control; mA and/or kV adjustment per patient size (includes targeted exams where dose is matched to clinical indication); or iterative reconstruction. Contrast material: OMNIPAQUE 350; Contrast volume: 85 ml; Contrast route: INTRAVENOUS (IV); COMPARISON: CT HEAD - STROKE PROTOCOL 10/17/2019 4:26 PM FINDINGS: Anterior cerebral arteries: No occlusion or significant stenosis. No aneurysm. Right internal carotid artery: Intracranial segment is patent with no significant stenosis or occlusion. No aneurysm. Right middle cerebral artery: No occlusion or significant stenosis. No aneurysm. Right posterior cerebral artery: No occlusion or significant stenosis. No aneurysm. Right vertebral artery: No occlusion or significant stenosis. No aneurysm. Left internal carotid artery: Intracranial segment is patent with no significant stenosis or occlusion. No aneurysm. Left middle cerebral artery: No occlusion or significant stenosis. No aneurysm. Left posterior cerebral artery: No occlusion or significant stenosis. No aneurysm. Left vertebral artery: No occlusion or significant stenosis. No aneurysm. Basilar artery: No occlusion or significant stenosis. No aneurysm. IMPRESSION: No large vessel stenosis or occlusion. 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 3D rendering: MIP and/or 3D reconstructed images were created by the technologist. Radiation optimization: All CT scans at this facility use at least one of these dose optimization techniques: automated exposure control; mA and/or kV adjustment per patient size (includes targeted exams where dose is matched to clinical indication); or iterative reconstruction. Contrast material: OMNIPAQUE 350; Contrast volume: 85 ml; Contrast route: INTRAVENOUS (IV); COMPARISON: CT HEAD - STROKE PROTOCOL 10/17/2019 4:26 PM FINDINGS: Right common carotid artery: No stenosis. No dissection or occlusion. Right internal carotid artery: Minimal nonsignificant atherosclerosis in the origin of the right internal carotid artery. Right external carotid artery: No occlusion or stenosis of the origin. Right vertebral artery: No stenosis. No dissection or occlusion. Left common carotid artery: No stenosis. No dissection or occlusion. Left internal carotid artery: No stenosis of the extracranial segment. No dissection or occlusion. Left external carotid artery: No occlusion or stenosis of the origin. Left vertebral artery: No stenosis. No dissection or occlusion. Subclavian arteries: Minimal nonsignificant atherosclerosis in the origin of the right subclavian artery. Bones/joints: No acute fracture. Soft tissues: Normal. No significant soft tissue swelling. IMPRESSION: No significant atherosclerotic disease. REFERENCES: NASCET CRITERIA. The degree of internal carotid artery stenosis is based on NASCET criteria. Normal is no stenosis. Mild is less than 50% stenosis. Moderate is 50-69% stenosis. Severe is 70% to 99% stenosis. Total occlusion is no detectable patent lumen. Dictated and Authenticated by: Rusty Connell MD. Ordering:JOSEPHINE Reeder MD
--- NOTE | 2019-10-19 08:25 | NUR.NOTE ---
Nursing Note: Urine culture result printed off. Patient transferred to [facility] [place] and treated by them for her UTI with Macrobid twice a day for 5 days. Result with [facility] discharge info will be faxed to [facility] for follow up. Dr. Mckinney aware of this. Christal Tan.
== END 2019-10-17 20:53 | disposition short-term general hospital (02) ==
PROVIDERS: Emergency Provider Student in an Organized Health Care Education/Training Program
DX: R27.8 Other lack of coordination (principal); I63.9 Cerebral infarction, unspecified; H53.8 Other visual disturbances; I10 Essential (primary) hypertension; E11.9 Type 2 diabetes mellitus without complications; Z79.84 Long term (current) use of oral hypoglycemic drugs; Z86.73 Personal history of transient ischemic attack (TIA), and cerebral infarction without residual deficits
CPT/HCPCS: 36415; 36416; 70496; 70498; 80053; 82962; 87077; 93005; 96360; 96361; 99285; 70450; 81003; 81015; 84484; 85025; 85610; 87086; 87186; 93010; J3490

== ENCOUNTER 2020-03-09 02:21 | Outpatient (CLI) | payer MEDICARE, SELFPAY ==
[2020-03-09 08:32] LABS: Abs Immature Grans 0.06 10^3/uL (0.0-0.06); Absolute Basophil Count 0.05 10^3/uL (0.0-0.2); Absolute Eosinophil Count 0.27 10^3/uL (0.0-0.7); Absolute Lymphocyte Count 1.84 10^3/uL (1.2-3.4); Absolute Monocyte Count 0.98 10^3/uL (0.1-0.8); Absolute Neutrophil Count 4.17 10^3/uL (1.2-6.7); Basophils % 0.7; Eosinophils % 3.7; HCT 37.2 % (36.0-46.0); HGB 12.6 g/dL (11.2-15.7); Immature Grans % 0.8; MCH 33.8 pg (27.0-33.0); MCHC 33.9 % (32.0-36.0); MCV 99.7 fL (80-95); MPV 9.4 fL (8.0-11.0); Monocytes % 13.3; Neutrophils % 56.5; Nucleated RBC 0 %; Platelet Count 422 10^3/uL (130-400); RBC 3.73 10^6/uL (3.93-5.22); RDW 15.5 % (11.7-14.6); RDW-SD 57.3 fL; WBC 7.37 10^3/uL (4.4-10.8)
[2020-03-09 09:05] LABS: Hemoglobin A1C 5.9 % (<5.7)
[2020-03-09 09:23] LABS: ALT 73 U/L (14-59); AST 73 U/L (15-37); Albumin 3.7 g/dL (3.4-5.0); Alkaline Phosphatase 100 U/L (46-116); Anion Gap 10.7 mmol/L (3-11); BUN 12 mg/dL (7-18); Bilirubin, Total 0.5 mg/dL (0.2-1.0); CO2 25.3 mmol/L (21.0-32.0); CREATININE 1.59 mg/dL (0.55-1.02); Calcium 9.3 mg/dL (8.5-10.1); Chloride 99 mmol/L (98-107); Estimated GFR 32.01 (mL/min/1.73m2); Glucose 105 mg/dL (74-106); Potassium 4.8 mmol/L (3.5-5.1); Sodium 135 mmol/L (136-145); Total Protein 7.2 g/dL (6.4-8.2)
[2020-03-09 10:49] LABS: FREE T4 0.14 ng/dL (0.76-1.46)
== END 2020-03-09 02:41 ==
DX: G47.00 Insomnia, unspecified (principal); Z90.09 Acquired absence of other part of head and neck; R10.9 Unspecified abdominal pain; R19.7 Diarrhea, unspecified; E11.9 Type 2 diabetes mellitus without complications; E03.9 Hypothyroidism, unspecified
CPT/HCPCS: 36415; 80053; 83036; 84439; 84443; 85025

== ENCOUNTER 2020-04-20 02:21 | Outpatient (CLI) | payer MEDICARE, SELFPAY ==
[2020-04-20 11:40] LABS: Hemoglobin A1C 5.7 % (<5.7)
[2020-04-20 12:21] LABS: ALT 25 U/L (14-59); AST 24 U/L (15-37); Albumin 3.8 g/dL (3.4-5.0); Alkaline Phosphatase 76 U/L (46-116); Anion Gap 9.4 mmol/L (3-11); BUN 18 mg/dL (7-18); Bilirubin, Total 0.3 mg/dL (0.2-1.0); CO2 23.6 mmol/L (21.0-32.0); CREATININE 1.05 mg/dL (0.55-1.02); Calcium 8.6 mg/dL (8.5-10.1); Chloride 107 mmol/L (98-107); Estimated GFR 51.66 (mL/min/1.73m2); Glucose 78 mg/dL (74-106); Potassium 4.4 mmol/L (3.5-5.1); Sodium 140 mmol/L (136-145); TSH (W/Ref FT4) 2.36 uIU/mL (0.36-3.74)
== END 2020-04-20 02:41 ==
DX: E03.9 Hypothyroidism, unspecified (principal); E11.9 Type 2 diabetes mellitus without complications
CPT/HCPCS: 36415; 80053; 83036; 84443

== ENCOUNTER 2020-07-11 02:53 | Outpatient (CLI) | payer MEDICARE, SELFPAY ==
[2020-07-11 12:45] LABS: Calculated LDL 91 mg/dL (<100); Cholesterol 189 mg/dL (<200); HDL Cholesterol 36 mg/dL (40-60); Triglyceride 314 mg/dL (<150)
== END 2020-07-11 02:54 | disposition home or self-care (01) ==
LOC: LBO 02:53
DX: I10 Essential (primary) hypertension (principal)
CPT/HCPCS: 36415; 80061

== ENCOUNTER 2021-01-02 09:49 | Outpatient (CLI) | payer MEDICARE, SELFPAY ==
--- NOTE | 2021-01-02 09:45 | RT.EKG_ITS ---
APPROVED REPORT Exam: Resting ECG Reason for Exam: Chest pain Patient Location: O HR:65 bpm ECG Measurements Heart Rate 65 AXIS DE 158 P -37 QRSd 82 QRS -4 QT 430 T 46 QTc 448 Conclusion Sinus rhythm...normal P axis, V-rate 60- 99
== END 2021-01-02 09:50 | disposition home or self-care (01) ==
LOC: DI.CM 09:50
DX: R07.89 Other chest pain (principal)
CPT/HCPCS: 93010

== ENCOUNTER 2021-01-08 04:12 | Outpatient (CLI) | payer MEDICARE, SELFPAY ==
[2021-01-08 10:55] LABS: ALT 20 U/L (14-59); AST 14 U/L (15-37); Albumin 4.1 g/dL (3.4-5.0); Alkaline Phosphatase 121 U/L (46-116); Anion Gap 14.7 mmol/L (3-11); BUN 17 mg/dL (7-18); Bilirubin, Total 0.4 mg/dL (0.2-1.0); CO2 22.3 mmol/L (21.0-32.0); CREATININE 1.1 mg/dL (0.55-1.02); Calcium 9.1 mg/dL (8.5-10.1); Chloride 104 mmol/L (98-107); Estimated GFR 48.82 (mL/min/1.73m2); Glucose 122 mg/dL (74-106); Potassium 4.2 mmol/L (3.5-5.1); Sodium 141 mmol/L (136-145); TSH (W/Ref FT4) 0.02 uIU/mL (0.36-3.74); Total Protein 7.8 g/dL (6.4-8.2)
[2021-01-08 11:11] LABS: FREE T4 1.44 ng/dL (0.76-1.46)
== END 2021-01-08 04:13 | disposition home or self-care (01) ==
LOC: LBO 04:12
DX: E03.9 Hypothyroidism, unspecified; R07.89 Other chest pain
CPT/HCPCS: 36415; 80053; 84439; 84443

== ENCOUNTER 2021-01-09 01:06 | Outpatient (CLI) | payer MEDICARE, SELFPAY ==
--- NOTE | 2021-01-09 11:00 | ETT_ITS ---
APPROVED REPORT Exam: Exercise Treadmill Patient Location: Out-Patient Room/Bed: Stress Nurse: Glendy Lai RN Ordering Provider:PETTY MCLEAN, Contact Number: [phone] BMI: 25.38 Baseline Rhythm: Sinus Rhythm Indications: Atypical chest discomfort Medical History Medical History: Anxiety, Thyroid cancer s/p thyroidectomy Cardiac Medications: Pantoprazole, Nitro SL, Metoprolol tartrate, Metformin, Losartan, Clopidogrel, A torvastatin Allergies: Nifedipine Cardiac Risk Factors: FHX of CAD, HTN, Hyperlipidemia, DM Previous Cardiac Procedures: None Pretest Chest Pain Characteristics: No chest pain Exercise History: Physically active Physical Disabilities: No Lung Sounds: Clear to auscultation Heart Sounds: Regular Stress Test Details Test: Exercise stress test Exercise stress testing was performed using a Aaron protocol. Rest Stress HR Resting HR Supine: 70 bpm Max Heart Rate (APMHR): 148 bpm Resting HR Standin bpm Target HR (85% APMHR): 125 bpm Max HR Achieved: 136 bpm % of APMHR: 91 Recovery HR: 81 bpm Comment: metoprolol tartrate not held for test, last taken at 0600 BP Resting BP Supine: 160/70 mmHg Resting BP Standin/84 mmHg Max BP: 198/92 mmHg Recovery BP: 158/72 mmHg BP response to stress: Normal blood pressure response to stress. ECG Resting ECG: Sinus Rhythm Ectopy: episode of bigeminy Stress ECG: Sinus Tachycardia ST Change: No significant ST segment changes noted Arrhythmia: None Recovery ECG: Sinus Rhythm Recovery ST Change: No significant ST segment changes noted Recovery Arrhythmia: NSVT, PACs, multifocal PVCs Clinical Reason for Termination: Fatigue Stress Symptoms: Dyspnea, General Fatigue Exercise duration: 3 min29 sec Highest Stage Reached: Stage 2: 2.5 mph at 12% grade. Exercise capacity: 5.22 METs Al Treadmill Score: 3 Rate Pressure Product: 42213 Stress ECG Conclusion 1. The patient exercised for 3 minutes and 30 seconds (5 METS). Exercise was stopped due to fatigue. 2. The patient no symptoms suggestive of ischemia. 3. The patient's blood pressure and heart rate augmented appropriately. 4. There is no evidence of ischemia on the ECG portion of the exam. Al Treadmill Score is 3 which is Moderate risk. Stress Test Summary STAGE Time (mins) Speed (mph) Grade (%) HR BP SYMPTOMS METS Supine 70 160/70 Standing 75 158/84 1 3 1.7 10 130 160/82 SpO2 95%, mod SOB 4.6 1 min recovery 125 198/92 3 min recovery 87 172/78 6 min recovery 81 158/72
== END 2021-01-09 01:26 ==
DX: R07.89 Other chest pain (principal); Z82.49 Family history of ischemic heart disease and other diseases of the circulatory system; I10 Essential (primary) hypertension; E78.5 Hyperlipidemia, unspecified; E11.9 Type 2 diabetes mellitus without complications
CPT/HCPCS: 93016; 93018; 93017

== ENCOUNTER 2021-04-24 03:04 | Outpatient (CLI) | payer MEDICARE, SELFPAY ==
[2021-04-24 11:06] LABS: Hemoglobin A1C 6.6 % (<5.7)
[2021-04-24 12:36] LABS: FREE T4 1.29 ng/dL (0.76-1.46)
== END 2021-04-24 03:05 | disposition home or self-care (01) ==
LOC: LBO 03:04
DX: E11.9 Type 2 diabetes mellitus without complications (principal); E03.9 Hypothyroidism, unspecified; Z98.890 Other specified postprocedural states
CPT/HCPCS: 36415; 83036; 84439; 84443

== ENCOUNTER 2021-09-05 01:44 | Outpatient (CLI) | payer MEDICARE, SELFPAY ==
[2021-09-05 09:34] LABS: Abs Immature Grans 0.02 10^3/uL (0.0-0.06); Absolute Basophil Count 0.07 10^3/uL (0.0-0.2); Absolute Eosinophil Count 0.31 10^3/uL (0.0-0.7); Absolute Lymphocyte Count 2.06 10^3/uL (1.2-3.4); Absolute Monocyte Count 0.58 10^3/uL (0.1-0.8); Eosinophils % 4.3; HCT 29.9 % (36.0-46.0); HGB 8.2 g/dL (11.2-15.7); Immature Grans % 0.3; Lymphocytes % 28.9; MCH 20.6 pg (27.0-33.0); MCHC 27.4 % (32.0-36.0); MCV 75 fL (80-95); MPV 10.4 fL (8.0-11.0); Monocytes % 8.1; Neutrophils % 57.4; Platelet Count 434 10^3/uL (130-400); RBC 3.99 10^6/uL (3.93-5.22); RDW 17.6 % (11.7-14.6); RDW-SD 47.2 fL; WBC 7.14 10^3/uL (4.4-10.8)
[2021-09-05 09:57] LABS: Diff Comment Diff Reviewed
[2021-09-05 09:58] LABS: Anisocytosis 1+; Hemoglobin A1C 6.4 % (<5.7); Hypochromasia 1+; Microcytosis 2+; Ovalocytes 2+; Poikilocytes 2+
[2021-09-05 10:51] LABS: ALT 18 U/L (14-59); AST 16 U/L (15-37); Albumin 3.6 g/dL (3.4-5.0); Alkaline Phosphatase 93 U/L (46-116); Anion Gap 11.8 mmol/L (3-11); BUN 19 mg/dL (7-18); Bilirubin, Total 0.3 mg/dL (0.2-1.0); CO2 23.2 mmol/L (21.0-32.0); Calcium 8.4 mg/dL (8.5-10.1); Calculated LDL 72 mg/dL (<100); Chloride 106 mmol/L (98-107); Cholesterol 140 mg/dL (<200); Glucose 105 mg/dL (74-106); HDL Cholesterol 37 mg/dL (40-60); Potassium 4.1 mmol/L (3.5-5.1); Sodium 141 mmol/L (136-145); TSH (W/Ref FT4) 0.04 uIU/mL (0.36-3.74); Triglyceride 157 mg/dL (<150)
[2021-09-06 11:57] LABS: Hepatitis C Ab w Rflx HCV PCR Negative (Negative)
== END 2021-09-05 01:45 | disposition home or self-care (01) ==
LOC: LBO 01:44
DX: E78.5 Hyperlipidemia, unspecified (principal); I10 Essential (primary) hypertension; D64.9 Anemia, unspecified; E11.9 Type 2 diabetes mellitus without complications; E03.9 Hypothyroidism, unspecified; Z20.5 Contact with and (suspected) exposure to viral hepatitis
CPT/HCPCS: 36415; 80053; 80061; 86803; 83036; 84439; 84443; 85025

== ENCOUNTER → 2021-09-27 08:24 | Outpatient (BNVA) | payer MEDICARE, SELFPAY | PROVIDERS: Visit Provider Physical Therapy Assistant | DX: R07.9 Chest pain, unspecified (principal); D64.9 Anemia, unspecified; R06.02 Shortness of breath | CPT/HCPCS: 99214 ==

== ENCOUNTER 2021-09-27 13:25 | Outpatient (CLI) | payer MEDICARE, SELFPAY ==
--- NOTE | 2021-09-27 13:15 | RT.EKG_ITS ---
APPROVED REPORT Exam: Resting ECG Reason for Exam: Chest pain Patient Location: O HR:67 bpm ECG Measurements Heart Rate 67 AXIS OH 134 P -1 QRSd 81 QRS -5 QT 420 T 59 QTc 445 Conclusion Sinus rhythm...normal P axis, V-rate 60- 99 Normal Electrocardiogram
== END 2021-09-27 13:26 | disposition home or self-care (01) ==
LOC: DI.CM 13:28
DX: R07.9 Chest pain, unspecified (principal)
CPT/HCPCS: 93010

== ENCOUNTER 2021-09-27 16:53 | Outpatient (REF) | payer MEDICARE, SELFPAY ==
[2021-09-27 20:09] LABS: HCT 29.6 % (36.0-46.0); HGB 8.6 g/dL (11.2-15.7)
[2021-09-27 20:14] LABS: Anion Gap 11.9 mmol/L (3-11); BUN 18 mg/dL (7-18); CO2 22.1 mmol/L (21.0-32.0); CREATININE 0.9 mg/dL (0.55-1.02); Calcium 8.5 mg/dL (8.5-10.1); Chloride 103 mmol/L (98-107); Glucose 88 mg/dL (74-106); Potassium 4.2 mmol/L (3.5-5.1); Sodium 137 mmol/L (136-145)
== END 2021-09-27 16:54 | disposition home or self-care (01) ==
LOC: LBN 16:53
DX: D64.9 Anemia, unspecified (principal)
CPT/HCPCS: 80048; 85014; 85018

== ENCOUNTER 2021-10-01 09:56 | Outpatient (CLI) | payer MEDICARE, SELFPAY ==
--- NOTE | 2021-10-01 09:45 | RT.EKG_ITS ---
APPROVED REPORT Exam: Resting ECG Reason for Exam: SOB Patient Location: O HR:86 bpm ECG Measurements Heart Rate 86 AXIS NM 141 P -41 QRSd 85 QRS -25 QT 354 T 36 QTc 424 Conclusion Sinus rhythm...normal P axis, V-rate 50- 99 Borderline left axis deviation...QRS axis (-15,-29) Abnormal R-wave progression, early transition...QRS area>0 in V2 Baseline wander in lead(s) V2
== END 2021-10-01 09:57 | disposition home or self-care (01) ==
LOC: DI.CARD 09:57
PROVIDERS: Visit Provider Internal Medicine Cardiovascular Disease
DX: R06.02 Shortness of breath (principal); R07.9 Chest pain, unspecified
CPT/HCPCS: 93010

== ENCOUNTER → 2021-10-01 13:30 | Outpatient (BNVA) | payer MEDICARE, SELFPAY | PROVIDERS: Visit Provider Internal Medicine Cardiovascular Disease | DX: R06.02 Shortness of breath (principal); R07.9 Chest pain, unspecified; D64.9 Anemia, unspecified | CPT/HCPCS: 93005; 99203; 99214 ==

== ENCOUNTER → 2021-10-15 01:26 | Outpatient (CLI) | payer MEDICARE, SELFPAY ==
--- NOTE | 2021-10-15 07:15 | DI.NM_ITS ---
APPROVED REPORT Exam: Exercise Treadmill Patient Location: Out-Patient Room/Bed: Stress Nurse: Glendy Lai RN Ordering Provider:PETTY MCLEAN, Contact Number: [phone] BMI: 26.85 Baseline Rhythm: Sinus Rhythm Comment: PVCs Indications: CHEST PAIN AT REST, SOB, ANEMIA Medical History Medical History: Anemia, Angina, HTN, HLD, DM II, Anxiety Cardiac Medications: Metoprolol tartrate, Metformin, Nitro, Losartan, Atorvastatin, Clopidogrel Allergies: Nifedipine Cardiac Risk Factors: FHX of CAD, HTN, Hyperlipidemia, DM Previous Cardiac Procedures: None Pretest Chest Pain Characteristics: No chest pain Exercise History: Sedentary Physical Disabilities: None Lung Sounds: Clear to auscultation Heart Sounds: Regular, Regular Stress Test Details Test: Exercise stress testing was performed using a modified Aaron protocol. Nuclear Acquisition: Rest Tc-99m/Stress Tc-99m 1 day Rest Isotope: Tc-99m Sestamibi. Dose: 10.0 Date: 10/15/2021 Injection Time: 1115 Stress Isotope: Tc-99m Sestamibi. Dose: 31.0 Date: 10/15/2021 Injection Time: 1310 HR Resting HR Supine: 79 bpm Max Heart Rate (APMHR): 148.387007 bpm Resting HR Standin bpm Target HR (85% APMHR): 125.671197 bpm Max HR Achieved: 148 bpm % of APMHR: 100.00 Recovery HR: 88 bpm HR response to stress: Accelerated HR response to stress Comment: Metoprolol tartrate held for 48 hours. BP Resting BP Supine: 142/82 mmHg Resting BP Standin/78 mmHg Max BP: 184/82 mmHg Recovery BP: 148/80 mmHg ECG Resting ECG: Sinus Rhythm Ectopy: PVCs Stress ECG: Sinus Tachycardia ST Change: No significant ST segment changes noted Arrhythmia: PVCs, PACs Recovery ECG: Sinus Rhythm Recovery ST Change: No significant ST segment changes noted Recovery Arrhythmia: PVCs, PVC couplet, PACs Clinical Reason for Termination: Dyspnea, Fatigue Stress Symptoms: Dyspnea, Leg Fatigue, General Fatigue Exercise duration: 2 min29 sec Highest Stage Reached: Stage 0: 1.7 mph at 0% grade. Exercise capacity: 2.30 METs Rate Pressure Product: [id number] Stress ECG Conclusion 1. The patient exercised for 2 minutes and 30 seconds (2.3 METS). Exercise was stopped due to leg fa tigue. 2. There is no evidence of ischemia on the ECG portion exam. Despite the poor exercise tolerance the patient was able to achieve target heart rate. Stress Test Summary STAGE Time (mins) Speed (mph) Grade (%) HR BP SYMPTOMS METS 0 3 1.7 0 146 2.3 1 min recovery 138 174/82 3 min recovery 95 184/82 6 min recovery 88 148/80 Supine 79 142/82 Standing 95 144/78 MPI Conclusion The patient's LV augmented appropriately with stress (EF 67%), there is mild hypokinesis of the basal septum. There is a small mostly fixed perfusion defect at the basal septum. This likely represents an abnormal stress test. Radiologist Interpretation Radiologist Interpretation by: Eduardo Amezcua MD Interpretation Date/Time: 10/15/2021 16:44:38
== END ==
DX: D64.9 Anemia, unspecified (principal); I20.9 Angina pectoris, unspecified; R06.02 Shortness of breath; R07.89 Other chest pain
CPT/HCPCS: 78452; 93016; 93018; 93017

== ENCOUNTER 2021-11-28 03:26 | Outpatient (CLI) | payer MEDICARE, SELFPAY ==
[2021-11-28 15:52] LABS: HCT 31.2 % (36.0-46.0); MCH 21.4 pg (27.0-33.0); MCHC 28.8 % (32.0-36.0); MCV 74 fL (80-95); MPV 10.3 fL (8.0-11.0); Platelet Count 570 10^3/uL (130-400); RBC 4.21 10^6/uL (3.93-5.22); RDW 19.2 % (11.7-14.6); RDW-SD 51.1 fL
[2021-11-28 16:32] LABS: Iron 31 ug/dL (50-170)
[2021-11-28 16:44] LABS: ALT 16 U/L (14-59); AST 9 U/L (15-37); Albumin 3.7 g/dL (3.4-5.0); Alkaline Phosphatase 86 U/L (46-116); Anion Gap 11.6 mmol/L (3-11); BUN 23 mg/dL (7-18); Bilirubin, Total 0.2 mg/dL (0.2-1.0); CO2 22.4 mmol/L (21.0-32.0); CREATININE 0.9 mg/dL (0.55-1.02); Calcium 8.3 mg/dL (8.5-10.1); Chloride 105 mmol/L (98-107); Ferritin 6 ng/mL (8-252); Glucose 145 mg/dL (74-106); Potassium 3.8 mmol/L (3.5-5.1); Sodium 139 mmol/L (136-145); Total Protein 7.5 g/dL (6.4-8.2)
== END 2021-11-28 03:27 | disposition home or self-care (01) ==
LOC: LBO 03:26
PROVIDERS: Visit Provider Family Medicine
DX: D64.9 Anemia, unspecified (principal)
CPT/HCPCS: 36415; 80053; 85027; 82728; 83540

== ENCOUNTER 2022-03-04 03:06 | Outpatient (CLI) | payer MEDICARE, SELFPAY ==
[2022-03-04 14:50] LABS: HCT 41.5 % (36.0-46.0); HGB 13.3 g/dL (11.2-15.7); MCH 28.5 pg (27.0-33.0); MCV 89 fL (80-95); Platelet Count 460 10^3/uL (130-400); RBC 4.66 10^6/uL (3.93-5.22); RDW 19.2 % (11.7-14.6); RDW-SD 63.7 fL
[2022-03-04 15:32] LABS: Iron 134 ug/dL (50-170)
[2022-03-04 15:47] LABS: Ferritin 24 ng/mL (8-252)
== END 2022-03-04 03:07 | disposition home or self-care (01) ==
LOC: LBO 03:06
PROVIDERS: Visit Provider Family Medicine
DX: D64.9 Anemia, unspecified (principal)
CPT/HCPCS: 36415; 85027; 82728; 83540

== ENCOUNTER 2022-08-28 02:33 | Outpatient (CLI) | payer OTHER, SELFPAY ==
[2022-08-28 10:36] LABS: ALT 26 U/L (14-59); AST 20 U/L (15-37); Albumin 4.2 g/dL (3.4-5.0); Alkaline Phosphatase 74 U/L (46-116); Anion Gap 9.3 mmol/L (3-11); BUN 28 mg/dL (7-18); Bilirubin, Total 0.5 mg/dL (0.2-1.0); CO2 27.7 mmol/L (21.0-32.0); CREATININE 1.3 mg/dL (0.55-1.02); Calcium 9.3 mg/dL (8.5-10.1); Calculated LDL 116 mg/dL (<100); Chloride 104 mmol/L (98-107); Cholesterol 207 mg/dL (<200); Estimated GFR 43.42 (mL/min/1.73m2); Glucose 104 mg/dL (74-106); HDL Cholesterol 45 mg/dL (40-60); Potassium 4.7 mmol/L (3.5-5.1); Sodium 141 mmol/L (136-145); TSH (W/Ref FT4) 9.27 uIU/mL (0.36-3.74); Total Protein 7.7 g/dL (6.4-8.2); Triglyceride 230 mg/dL (<150)
[2022-08-28 11:02] LABS: FREE T4 0.99 ng/dL (0.76-1.46)
== END 2022-08-28 02:34 | disposition home or self-care (01) ==
LOC: LBO 02:33
PROVIDERS: PCP Nurse Practitioner Family; Visit Provider Nurse Practitioner Family
DX: E11.9 Type 2 diabetes mellitus without complications (principal); E89.0 Postprocedural hypothyroidism
CPT/HCPCS: 36415; 80053; 80061; 84439; 84443

== ENCOUNTER 2022-09-11 01:57 | Outpatient (CLI) | payer OTHER, SELFPAY ==
--- NOTE | 2022-09-11 12:39 | DI.MAMMO_ITS ---
Exam(s) MAMMO SCREENING EXAM: MAMMO SCREENING CLINICAL HISTORY: screening,Z12.39 TECHNIQUE: Mammograms were interpreted according to the usual protocol including computer analysis w [employer] CAD system, tomosynthesis and C-view imaging. COMPARISON: 2013 through 2019 FINDINGS: The breasts are composed of mainly fatty density , Breast Density category A. No suspicious masses or suspicious microcalcifications are seen. No skin thickening or abnormal axillary lymph nodes are seen. There has been no significant change from prior exams. IMPRESSION: BI-RADS Category 1, Negative mammogram Yearly screening mammography is recommended. Breast Density - Category A, fatty density. A negative radiographic report should not delay biopsy if a dominant or clinically suspicious mass is present. Up to ten percent of cancers are not identified on mammography. A negative report may reinforce clinical impression. Adenosis and dense breasts may obscure an underlying neoplasm. False positive reports average 6 to 10%. Patient will receive a letter notifying them of these results.
== END 2022-09-11 02:17 ==
PROVIDERS: PCP Nurse Practitioner Family; Visit Provider Nurse Practitioner Family
DX: Z12.31 Encounter for screening mammogram for malignant neoplasm of breast (principal)
CPT/HCPCS: 77063; 77067

== ENCOUNTER 2022-11-15 01:41 | Outpatient (CLI) | payer OTHER, SELFPAY ==
[2022-11-15 13:31] LABS: Hemoglobin A1C 5.9 % (<5.7)
[2022-11-15 13:38] LABS: TSH (W/Ref FT4) 10.87 uIU/mL (0.36-3.74)
[2022-11-15 14:00] LABS: FREE T4 0.99 ng/dL (0.76-1.46)
== END 2022-11-15 01:42 | disposition home or self-care (01) ==
LOC: LBO 01:42
PROVIDERS: PCP Nurse Practitioner Family; Visit Provider Nurse Practitioner Family
DX: E11.9 Type 2 diabetes mellitus without complications (principal); E89.0 Postprocedural hypothyroidism
CPT/HCPCS: 36415; 83036; 84439; 84443

== ENCOUNTER 2023-01-16 03:42 | Outpatient (CLI) | payer OTHER, SELFPAY ==
[2023-01-16 15:19] LABS: TSH (W/Ref FT4) 12.54 uIU/mL (0.36-3.74)
[2023-01-16 15:36] LABS: FREE T4 1.04 ng/dL (0.76-1.46)
== END 2023-01-16 03:43 | disposition home or self-care (01) ==
LOC: LBO 03:42
PROVIDERS: PCP Nurse Practitioner Family; Visit Provider Nurse Practitioner Family
DX: E89.0 Postprocedural hypothyroidism (principal)
CPT/HCPCS: 36415; 84439; 84443

== ENCOUNTER 2023-03-06 02:16 | Outpatient (CLI) | payer OTHER, SELFPAY ==
[2023-03-06 10:51] LABS: TSH (W/Ref FT4) 0.16 uIU/mL (0.36-3.74)
[2023-03-06 11:24] LABS: FREE T4 1.32 ng/dL (0.76-1.46)
== END 2023-03-06 02:17 | disposition home or self-care (01) ==
LOC: LBO 02:16
PROVIDERS: PCP Nurse Practitioner Family; Visit Provider Nurse Practitioner Family
DX: E89.0 Postprocedural hypothyroidism (principal)
CPT/HCPCS: 36415; 84439; 84443

== ENCOUNTER 2023-03-07 11:24 | Outpatient (CLI) | payer OTHER, SELFPAY ==
--- NOTE | 2023-03-07 11:15 | RT.EKG_ITS ---
APPROVED REPORT Exam: Resting ECG Reason for Exam: Chest pain Patient Location: O HR:64 bpm ECG Measurements Heart Rate 64 AXIS WI 155 P 5 QRSd 91 QRS 15 QT 455 T 50 QTc 470 Conclusion Sinus arrhythmia...V-rate 46- 54, variation>10% Ventricular premature complex...V complex w/ short R-R interval Borderline low voltage, extremity leads...all extremity leads <0.6mV
== END 2023-03-07 11:25 | disposition home or self-care (01) ==
LOC: DI.CM 11:24
PROVIDERS: PCP Nurse Practitioner Family; Visit Provider Nurse Practitioner Family
DX: R07.9 Chest pain, unspecified (principal)
CPT/HCPCS: 93010

== ENCOUNTER 2023-03-07 12:23 | Emergency (ER) | payer OTHER, SELFPAY ==
[2023-03-07] VITALS (24 sets, daily range): BP systolic 103–194; BP diastolic 32–79; PULSE 54–78; RESP 11–25; TEMP 36.3; O2SAT 95–99
--- NOTE | 2023-03-07 12:15 | RT.EKG_ITS ---
APPROVED REPORT Exam: Resting ECG Reason for Exam: chest pain/SOB Patient Location: E HR:61 bpm ECG Measurements Heart Rate 61 AXIS AZ 149 P 5 QRSd 87 QRS -23 QT 446 T 33 QTc 451 Conclusion Incomplete analysis due to missing data in precordial lead(s) Sinus rhythm...normal P axis, V-rate 60- 99 Physician: no stemi
--- NOTE | 2023-03-07 12:30 | DI.CT_ITS ---
Exam(s) CT CHEST PE CTA EXAM: CT CHEST PE CTA CLINICAL HISTORY: recent flight, sob, r/o PE. TECHNIQUE: Imaging Protocol: Axial CT angiography was performed with multi-slice acquisition and mu lti-planar reconstructions as well as axial, coronal and sagittal MIP reconstructions. CONTRAST MATERIAL: Intravenous: Omnipaque 350 Contrast volume:100 ml COMPARISON: CR LEFT SHOULDER COMPLETE from 06/25/2017 CT,NM,TMT NM MPI REST STRESS GRP from 10/15/2021 FINDINGS: Pulmonary Arteries: No evidence of filling defect to suggest pulmonary emboli. Tracheobronchial tree: Patent where visualized. Mediastinum and Luann: No dominant adenopathy or fluid collection. Pulmonary parenchyma: No consolidation or dominant measurable mass. Limited evaluation due to expirat ory changes. No ill infiltrate. Pleura: No effusion or pneumothorax. Heart: The heart is mildly dilated. Mild coronary artery calcifications are seen. Aorta: Thoracic aorta non-dilated. No aneurysm. No dissection. Upper abdomen: Unremarkable. Bones: Degenerative changes greatest in mid thoracic region. Tubes, Catheters, and Lines: None IMPRESSION: No evidence of pulmonary embolism. No acute infiltrate. RADIATION DOSE DELIVERED: Total DLP DATA REPOSITORY: All CT scans at this facility are submitted to the National Radiology Data Registry (NRDR) Dose Index Registry (DIR) with the [employer] ([employer]). RADIATION OPTIMIZATION: All CT scans at this facility use at least one of these dose optimization te chniques: automated exposure control; mA and/or kV adjustment per patient size (includes targeted exa ms where dose is matched to clinical indication); or iterative reconstruction.
--- NOTE | 2023-03-07 12:49 | ED.GENADUL_ITS ---
Discharge Plan Disposition Patient Disposition: Transfer-Acute Inpatient Care Specific Acute Inpt Facility: [facility] Condition: Serious Discharge Details Chief Complaint: Chest Pain Clinical Impression: Unstable angina, Chest pain Primary Care Provider: Sylvester Goldman ED Provider: Tomi Arenas Home Meds and New Rx's Prescriptions: No Action nitroglycerin 0.4 mg tablet, sublingual 0.4 mg SL Q5-15M PRN (Reason: chest pain) Qty: 7 1RF Rx Instructions: SL EVERY 5 MINUTES, until response; do not exceed 3 doses per episode metformin 500 mg tablet extended release 24 hr See Rx Instructions .ROUTE .COMPLEX Qty: 90 3RF Dose Instruction: TAKE 1 TABLET BY MOUTH TWICE DAILY Rx Instructions: TAKE 1 TABLET BY MOUTH once daily ascorbic acid (vitamin C) 500 mg tablet 500 mg PO DAILY calcium carbonate-vitamin D3 [Calcium 500 + D] 1 EACH tablet 1 ea PO BID acetaminophen [Tylenol Arthritis Pain] 650 MG tablet extended release 650 mg PO PRN CENTRUM SILVER TABLET 1 EACH tablet 1 ea PO DAILY (DME) FreeStyle Lite Strips 1 EACH strip 1 ea Miscellaneous DAILY Qty: 100 Rx Instructions: dx: 250.00 (DME) lancing device [BD Lancet Device] 1 EACH misc 1 ea Miscellaneous DAILY Qty: 100 Rx Instructions: 250.00, use with Freestyle lite gabapentin 300 mg capsule See Rx Instructions .ROUTE .COMPLEX Qty: 180 3RF Dose Instruction: TAKE 1 CAPSULE BY MOUTH TWICE DAILY Rx Instructions: TAKE 1 CAPSULE BY MOUTH TWICE DAILY clobetasol 0.05 % ointment 1 applic TP BID PRN (Reason: face) Qty: 45 0RF Rx Instructions: apply to face prn pantoprazole 20 mg tablet,delayed release (DR/EC) 20 mg PO DAILY Qty: 90 3RF atorvastatin 40 mg tablet 40 mg PO DAILY Qty: 90 3RF metoprolol tartrate 25 mg tablet 25 mg PO BID Qty: 180 3RF Rx Instructions: for migraine prevention losartan [Cozaar] 100 mg tablet 100 mg PO DAILY Qty: 90 3RF butorphanol 10 mg/mL spray,non-aerosol 1 spray NS Q3H PRN Qty: 2.5 2RF Rx Instructions: FOR MIGRAINE - limit to 3 times per week. topiramate [Topamax] 100 mg tablet 100 mg PO HS Qty: 90 3RF levothyroxine 137 mcg tablet 137 mcg PO DAILY Qty: 90 4RF clopidogrel [Plavix] 75 mg tablet 75 mg PO DAILY Qty: 90 1RF trazodone 50 mg tablet See Rx Instructions .ROUTE .COMPLEX Qty: 135 3RF Dose Instruction: TAKE 1/2 TABLET (25MG) TO 1 AND 1/2 TABLETS (75MG) BY MOUTH EVERY NIGHT AT BEDTIME Rx Instructions: TAKE 1/2 TABLET (25MG) TO 1 AND 1/2 TABLETS (75MG) BY MOUTH EVERY NIGHT AT BEDTIME Medical Decision Making 72-year-old female with a past medical history of diabetes, hypertension, high cholesterol, very strong family history of cardiac disease, who presents today for evaluation of shortness of breath and chest pain. Patient recently went to [place], she flew down 8 days ago, when she landed in [place] shortly thereafter she developed mild chest discomfort, chest tightness, notable shortness of breath. She noticed significant swelling in her lower extremities which has been improving slowly. She flew back a few days ago and has had continued chest tightness chest pain and shortness of breath. Pain is present when she takes a deep breath. If she is sitting and resting she admits to chest tightness but no pain. When she gets up and ambulates or walks she has notable chest pain, left shoulder pain and neck pain. She denies any history of blood clots or heart attacks. She denies any vomiting or diarrhea. She has been taking nitroglycerin and this does help the pain go away. She denies numbness tingling or weakness otherwise. No personal history of heart attacks in the past. Stress test from 2020 was read as negative. Exam demonstrates well-appearing female, mild current chest tightness. No significant calf tenderness. Minimal pitting edema in the lower extremities. Bedside echo demonstrates questionable diminished wall motion at the apex. Ejection fraction appears to be around +40%. Concern for ACS versus PE. CHF less likely. With the patient's persistent chest tightness, and other symptoms, we we will start the patient on nitroglycerin. We will monitor closely and reassess. EKG does not show evidence of STEMI at this time. 3:54 PM Laboratory work-up demonstrates no white count bandemia or left shift. D-dimer elevated. CTA was ordered, no evidence of pulmonary embolus or acute infiltrate per radiology. Laboratory work-up otherwise stable. Troponin normal. proBNP 391. Platelets normal. Patient had resolution of her pain when she is not ambulating or performing activity. She only had resolution of the pressure in her chest though when the nitroglycerin was started. She remains pressure free on the nitroglycerin drip. Heparin has been started. We did reach out to [facility] and discussed the case with Pat from cardiology, I am concerned for unstable angina for the patient's symptoms. She agrees. She recommends holding off on Plavix at this time. She does agree on transfer. Patient will be transferred to [facility] under Dr. Westfall. We will continue heparin and nitro drip. I have extensively reviewed the treatment plan with the patient. I have addressed all patient concerns at this time. I have also discussed the plan with the admitting physician and they agree with the current assessment and plan and have agreed to assume responsibility for the patient. All parties demo nstrate verbal understanding and agreement with our assessment and plan at this time. The documentation in this chart was dictated using [employer] dictation software. Please excuse any dictation errors. At time of transfer the patient was reassessed and continued to demonstrate No signs of acute respiratory distress requiring intubation, hemodynamic instability requiring pressor support, or rapidly declining mental status. At time of transfer the patient was reassessed and continued to demonstrate No signs of acute respiratory distress requiring intubation, hemodynamic instability requiring pressor support, or rapidly declining mental status. FINDINGS: Pulmonary Arteries: No evidence of filling defect to suggest pulmonary emboli. Tracheobronchial tree: Patent where visualized. Mediastinum and Luann: No dominant adenopathy or fluid collection. Pulmonary parenchyma: No consolidation or dominant measurable mass. Limited evaluation due to expiratory changes. No ill infiltrate. Pleura: No effusion or pneumothorax. Heart: The heart is mildly dilated. Mild coronary artery calcifications are seen. Aorta: Thoracic aorta non-dilated. No aneurysm. No dissection. Upper abdomen: Unremarkable. Bones: Degenerative changes greatest in mid thoracic region. Tubes, Catheters, and Lines: None IMPRESSION: No evidence of pulmonary embolism. No acute infiltrate. HPI General Date/Time Provider Initiated Documentation: 03/07/23 12:32 . HPI Narrative: 72-year-old female with a past medical history of diabetes, hypertension, high cholesterol, very strong family history of cardiac disease, who presents today for evaluation of shortness of breath and chest pain. Patient recently went to [place], she flew down 8 days ago, when she landed in [place] shortly thereafter she developed mild chest discomfort, chest tightness, notable shortness of breath. She noticed significant swelling in her lower extremities which has been improving slowly. She flew back a few days ago and has had continued chest tightness chest pain and shortness of breath. Pain is present when she takes a deep breath. If she is sitting and resting she admits to chest tightness but no pain. When she gets up and ambulates or walks she has notable chest pain, left shoulder pain and neck pain. She denies any history of blood clots or heart attacks. She denies any vomiting or diarrhea. She has been taking nitroglycerin and this does help the pain go away. She denies numbness tingling or weakness otherwise. No personal history of heart attacks in the past. Stress test from 2020 was read as negative. Related Data Home Medications Medication Instructions Recorded Confirmed calcium carbonate 500 mg-vitamin 1 ea PO BID 03/05/13 03/07/23 D3 5 mcg (200 unit) tablet (Calcium 500 + D) Centrum Silver Tablet 1 ea PO DAILY 07/06/13 03/07/23 acetaminophen 650 mg 650 mg PO PRN 07/06/13 03/07/23 tablet,extended release (Tylenol Arthritis Pain) blood sugar diagnostic (FreeStyle #100 strips 04/14/14 03/07/23 Lite Strips) lancing device (BD Lancet Device) #100 ea 04/14/14 03/07/23 ascorbic acid (vitamin C) 500 mg 500 mg PO DAILY 01/20/18 03/07/23 tablet gabapentin 300 mg capsule See Rx Instructions .Route 01/01/22 03/07/23 .COMPLEX #180 caps clobetasol 0.05 % topical ointment 1 applic topical BID PRN face #45 03/11/22 03/07/23 grams pantoprazole 20 mg tablet,delayed 20 mg PO DAILY #90 tabs 06/18/22 03/07/23 release atorvastatin 40 mg tablet 40 mg PO DAILY #90 tab-caps 07/29/22 03/07/23 metoprolol tartrate 25 mg tablet 25 mg PO BID #180 tab-caps 08/05/22 03/07/23 losartan 100 mg tablet (Cozaar) 100 mg PO DAILY #90 tabs 08/13/22 03/07/23 metformin 500 mg tablet,extended See Rx Instructions .Route 08/30/22 03/07/23 release 24 hr .COMPLEX #90 tabs nitroglycerin 0.4 mg sublingual 0.4 mg sublingual Q5-15M PRN chest 08/30/22 03/07/23 tablet pain #7 tabs butorphanol 10 mg/mL nasal spray 1 spray NS Q3H PRN #2.5 mL 10/22/22 03/07/23 topiramate 100 mg tablet (Topamax) 100 mg PO HS #90 tab-caps 11/12/22 03/07/23 levothyroxine 137 mcg tablet 137 mcg PO DAILY #90 tabs 12/02/22 03/07/23 clopidogrel 75 mg tablet (Plavix) 75 mg PO DAILY #90 tab-caps 02/07/23 03/07/23 trazodone 50 mg tablet See Rx Instructions .Route 02/07/23 03/07/23 .COMPLEX #135 tabs Previous Rx's Medication Instructions Recorded gabapentin 300 mg capsule See Rx Instructions .Route 01/01/22 .COMPLEX #180 caps clobetasol 0.05 % topical ointment 1 applic topical BID PRN face #45 03/11/22 grams pantoprazole 20 mg tablet,delayed 20 mg PO DAILY #90 tabs 06/18/22 release atorvastatin 40 mg tablet 40 mg PO DAILY #90 tab-caps 07/29/22 metoprolol tartrate 25 mg tablet 25 mg PO BID #180 tab-caps 08/05/22 losartan 100 mg tablet (Cozaar) 100 mg PO DAILY #90 tabs 08/13/22 metformin 500 mg tablet,extended See Rx Instructions .Route 08/30/22 release 24 hr .COMPLEX #90 tabs nitroglycerin 0.4 mg sublingual 0.4 mg sublingual Q5-15M PRN chest 08/30/22 tablet pain #7 tabs butorphanol 10 mg/mL nasal spray 1 spray NS Q3H PRN #2.5 mL 10/22/22 topiramate 100 mg tablet (Topamax) 100 mg PO HS #90 tab-caps 11/12/22 levothyroxine 137 mcg tablet 137 mcg PO DAILY #90 tabs 12/02/22 clopidogrel 75 mg tablet (Plavix) 75 mg PO DAILY #90 tab-caps 02/07/23 trazodone 50 mg tablet See Rx Instructions .Route 02/07/23 .COMPLEX #135 tabs Allergies Allergy/AdvReac Type Severity Reaction Status Date / Time nifedipine [From Procardia] Allergy Severe Cardiac Verified 03/07/23 13:16 Dysrythmia house dust Allergy Mild RHINITIS Verified 03/07/23 13:16 FUR Allergy Uncoded 03/07/23 13:16 General Stated Complaint: Chest Pain VIKRAM: 3 Review of Systems All systems reviewed & are unremarkable except as noted in HPI and below PFSH All Active Problems (Updated 03/07/23 @ 16:00 by Tomi Arenas DO) Chest pain (Acute) Unstable angina (Acute) Oral candidiasis (Acute) Shortness of breath (Acute) Chest pain at rest (Acute) Angina pectoris, unspecified (Chronic) Anemia (Chronic 03/26/12) Re-current Polypharmacy (Chronic) Polyp of colon (Chronic) TUBULAR ADENOMA (2006) repeat 2009, normal Irritable bowel syndrome with diarrhea (Chronic 04/20/15) Hypothyroidism (Chronic) due to thyroidectomy for thyroid cancer Gastroesophageal reflux disease with esophagitis (Chronic) 08/04 EGD; MILD GASTRITIS; ESOPHAGITIS Diabetes mellitus, type II (Chronic) Medical History Fatigue due to sleep pattern disturbance Exposure to hepatitis C Negative Screen 08/2021 Carpal tunnel syndrome on both sides Right > left Diarrhea Anxiety Lumbar radiculitis Hx of cervical cancer Hx of thyroid cancer Primary insomnia (04/20/15) Osteopenia (03/07/10) Hyperlipidemia (08/27/11) Atypical migraine Memory loss Hypertension Chronic migraine Surgical History History of arthroplasty H/O mastoidectomy Tonsillectomy and adenoidectomy (01/08/06) Thyroid (~02/2012) [place] [facility] LYMPH NODES JOINT REPAIR (01/08/06) RIGHT THUMB Vaginal hysterectomy (01/07/86) OVARIES REMAIN EGD - MAC (07/29/08) Colonoscopy - MAC 09/26/09 Family History Mother , age 92 Diabetes CHF (congestive heart failure) Hyperlipidemia Stroke Hypertension Heart disease Father , age 88 Diabetes Heart disease Lung cancer Skin cancer Sister No problems noted. Sister Essential hypertension Hyperlipidemia Brother , AGE 69 Esophageal cancer Hypertension Brother , AGE 54 Diabetes Hyperlipidemia Brain cancer Hypertension Brother Hyperlipidemia Hypertension Maternal Grandfather , age 67 Stroke Colon cancer Paternal Grandfather , FIRE at age 58. Hypertension Paternal Grandmother , AGE 33 Cancer ?Ovarian Maternal Grandmother , AGE 81 Diabetes Stroke Son No problems noted. Sister No problems noted. Social History Smoking/Tobacco Use Status: Never Smoking risk assessment performed?: Yes Alcohol Intake: current Alcohol Intake frequency: a few times a month Alcohol type: wine and hard liquor Drug use: Never Substance use type: does not use Counseling given: No Counseling provided: none Caregiver/Support person: No Household members: children Housing: house Do you need help understanding health information?: Never current occupation: [employer] Pets and animals: Yes Pets and animals: dog(s) and turtle(s) Sexually active: No Do you think of yourself as: straight/heterosexual Current gender identity: female What is your relationship status?: How often do you talk on the phone with friends or family?: three or more times per week Do you belong to any clubs or organized social groups?: no Panel score (0-1 are the most socially isolated patients): 1 What type of physical activity do you participate in: other Details: Senior exercise group Duration: 15-30 minutes/day Frequency: 1-2 times per week Marbella/Scientology: Orthodoxy Special marbella needs: No Seatbelt use: always Drive intox or ride w/intox feeder driver: No Do you feel safe at home: Yes Do you feel safe in your relationship?: Yes Additional Social history: 1 grown son, adopted. Exam Narrative Exam Narrative: 1.Const: Well-nourished, Well-developed, appearing stated age 2.Eyes: PERRL, no conjunctival injection, and symmetrical lids. 3.ENT: Atraumatic external nose and ears. Moist MM. Neck: Symmetric, trachea midline, No thyromegaly. 4.CVS: +S1/S2, No murmurs or gallops. Peripheral pulses 2+ and equal in all extremities. Brisk capillary refill in all extremities. 5.RESP: Unlabored respiratory effort. Clear to auscultation bilaterally. No wheezes rales or rhonchi 6.GI: Soft, Nontender/Nondistended, No hepatosplenomegaly. No guarding or rebound. 7.MSK: Normocephalic/Atraumatic, Extremities w/o deformity or ttp No cyanosis or clubbing, Normal movement of all extremities. Trace pitting edema. No focal calf tenderness. 8.Skin: Warm, Dry. No rashes or lesions. 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 Sensation grossly intact, no focal neurologic deficits. 10.Psych: (AAO) x3. Appropriate mood and affect Course Vital Signs Vital signs: Vital Signs Temperature 36.3 C L 03/07/23 12:29 Pulse 62 03/07/23 12:29 Respiratory Rate 17 03/07/23 12:29 Blood Pressure 194/79 H 03/07/23 12:29 Pulse Oximetry 99 03/07/23 12:29 Temperature 36.3 C L 03/07/23 12:29 Temperature Source Oral 03/07/23 12:29 Pulse 62 03/07/23 12:29 Respiratory Rate 17 03/07/23 12:42 Respiratory Effort Short of Breath 03/07/23 12:42 Respiratory Depth Normal 03/07/23 12:42 Respiratory Pattern Normal 03/07/23 12:42 Blood Pressure 194/79 H 03/07/23 12:29 Pulse Oximetry 99 03/07/23 12:29 Oxygen Delivery Method Room Air 03/07/23 12:29 Oxygen Flow Rate 0 03/07/23 12:29 Pain Level 0 03/07/23 12:42 Comment 0 pain at rest 03/07/23 12:29 Critical Care Time Critical Care Time Critical Care Time: Yes Total Critical Care Time: 45 Attestation: Upon my evaluation, this patient had a high probability of imminent or life- threatening deterioration, which required my direct attention, intervention, and personal management. I have personally provided 45 minutes of critical care time exclusive of time spent on separately billable procedures. Time includes review of laboratory data, radiology results, discussion with consultants, and monitoring for potential decompensation. Interventions were performed as documented. POCUS Exam (ED) Limited Cardiac Exam DATE OF EXAM: 03/07/23 TIME OF EXAM: 13:06 PROVIDER THAT PERFORMED THE STUDY: Tomi Arenas IS THIS A REPEAT EXAM DURING THIS ENCOUNTER: no REASON FOR EXAM: Chest pain and Dyspnea VISUALIZED STRUCTURES: Left atrium, Left ventricle, Right ventricle and Interventricular septum VIEW OBTAINED: Parasternal long-axis PERTINENT FINDINGS/IMPRESSION: LV dysfunction (Minimal, appear to be some wall motion abnormality at the apex) :mild Exam complete PAWSS Have you Been Recently Intoxicated or Drunk Within the Last 30 days?: No Have you Ever Experienced Previous Episodes of Alcohol Withdrawal?: No Have you ever Experienced Withdrawal Seizures?: No Have you ever Experienced Delirium Tremens(DT)s?: No Have you ever undergone Alcohol Rehabilitation Treatment (i.e, inpt ot outpatient treatment programs)?: No Have you ever Experienced Blackouts?: No Have you ever Combined Alcohol with other Downers within the last 90 days?: No Have you ever Combined Alcohol with any other Substance of Abuse during the last 90 days?: No Positive Blood Alcohol level on Presentation? [PCS.BAL]: No Evidence of Increased Autonomic Activity (i.e. HR>120, tremor, sweating, agitation, nausea)?: No Result: 0
[2023-03-07] MEDS: nitroGLYcerin in D5W 50 MG/250 ML BTL 10 MG IV (13:03)
[2023-03-07 13:21] LABS: Abs Immature Grans 0.02 10^3/uL (0.0-0.06); Absolute Basophil Count 0.04 10^3/uL (0.0-0.2); Absolute Eosinophil Count 0.19 10^3/uL (0.0-0.7); Absolute Lymphocyte Count 2.24 10^3/uL (1.2-3.4); Absolute Monocyte Count 0.61 10^3/uL (0.1-0.8); Absolute Neutrophil Count 4.45 10^3/uL (1.2-6.7); Basophils % 0.5; Eosinophils % 2.5; HCT 39.9 % (36.0-46.0); HGB 13.6 g/dL (11.2-15.7); Immature Grans % 0.3; Lymphocytes % 29.7; MCH 32.3 pg (27.0-33.0); MCHC 34.1 % (32.0-36.0); MCV 95 fL (80-95); Monocytes % 8.1; Neutrophils % 58.9; RBC 4.21 10^6/uL (3.93-5.22); RDW 12.7 % (11.7-14.6); RDW-SD 43.8 fL; WBC 7.55 10^3/uL (4.4-10.8)
[2023-03-07 13:35] LABS: PTT Activated 18.8 sec (23.6-32.8); Prothrombin Time 10.1 sec (9.1-11.1)
[2023-03-07 13:36] LABS: Diff Comment Diff Reviewed; RBC Morphology Normal
[2023-03-07 13:46] LABS: ALT 30 U/L (14-59); AST 28 U/L (15-37); Albumin 3.9 g/dL (3.4-5.0); Alkaline Phosphatase 73 U/L (46-116); Anion Gap 11.7 mmol/L (3-11); BUN 23 mg/dL (7-18); Bilirubin, Total 0.3 mg/dL (0.2-1.0); CO2 20.3 mmol/L (21.0-32.0); CREATININE 1.1 mg/dL (0.55-1.02); Calcium 8.9 mg/dL (8.5-10.1); Chloride 107 mmol/L (98-107); Estimated GFR 52.73 (mL/min/1.73m2); Glucose 100 mg/dL (74-106); Lipase 21 U/L (16-77); NT-proBNP 391 pg/mL (<300); Potassium 3.8 mmol/L (3.5-5.1); Sodium 139 mmol/L (136-145); TSH (W/Ref FT4) 0.09 uIU/mL (0.36-3.74); Total Protein 7.7 g/dL (6.4-8.2); Troponin I < 50 ng/L (<or=60)
[2023-03-07 13:58] LABS: D-Dimer 849 ng/mlFEU (<500)
[2023-03-07] MEDS: Normal Saline - Diluent 50 ML VIAL IJ (14:01)
[2023-03-07] MEDS: Omnipaque 350 MG/ML 500 ML BTL-Imaging package 100 ML IJ (14:02)
[2023-03-07 14:03] LABS: FREE T4 1.42 ng/dL (0.76-1.46)
[2023-03-07] MEDS: Normal Saline Flush 10 ML SYR IVP (14:04)
[2023-03-07] MEDS: Heparin in 0.45% NaCl 25,000 UNIT/250 ML BAG 8 UNIT IV (16:00)
[2023-03-07 16:32] LABS: Troponin I < 50 ng/L (<or=60)
--- NOTE | 2023-03-07 17:14 | W.PCEDHO ---
Registration Status: REG ER Primary Language: Preferred Language: Georgian ED Information & Data Chief Complaint Chest Pain 03/07/23 12:50 Triage Note Pt sent from PCP for CP and 03/07/23 12:29 SOB Medical / Surgical History (Last Reviewed 03/07/23 @ 13:02 by Tomi Arenas DO) Fatigue due to sleep pattern disturbance Exposure to hepatitis C Carpal tunnel syndrome on both sides Diarrhea Anxiety Lumbar radiculitis Hx of cervical cancer Hx of thyroid cancer Primary insomnia (04/20/15) Osteopenia (03/07/10) Hyperlipidemia (08/27/11) Atypical migraine Memory loss Hypertension Chronic migraine (Last Reviewed 03/07/23 @ 13:02 by Tomi Arenas DO) History of arthroplasty H/O mastoidectomy Tonsillectomy and adenoidectomy (01/08/06) Thyroid (~02/2012) JOINT REPAIR (01/08/06) Vaginal hysterectomy (01/07/86) EGD - MAC (07/29/08) Colonoscopy - MAC Most Recent Vital Signs Temperature 36.3 C L 03/07/23 12:29 Temperature Source Oral 03/07/23 12:29 Pulse 60 03/07/23 17:01 Pulse 66 03/07/23 17:01 Respiratory Rate 17 03/07/23 17:01 Respiratory Effort Short of Breath 03/07/23 12:42 Respiratory Depth Normal 03/07/23 12:42 Respiratory Pattern Normal 03/07/23 12:42 Blood Pressure 110/67 03/07/23 17:01 Blood Pressure Mean 79 03/07/23 17:01 Pulse Oximetry 96 03/07/23 17:01 Oxygen Delivery Method Room Air 03/07/23 12:29 Oxygen Flow Rate 0 03/07/23 12:29 Pain Level 0 03/07/23 12:42 Comment 0 pain at rest 03/07/23 12:29 Allergies nifedipine [From Procardia] Allergy (Severe, Verified 03/07/23 13:16) Cardiac Dysrythmia house dust Allergy (Mild, Verified 03/07/23 13:16) RHINITIS FUR Allergy (Uncoded 03/07/23 13:16) Precautions Isolation Standard precaution 03/07/23 12:42 Active Medications Generic Name Dose Route Start Last Admin Trade Name Freq PRN Reason Stop Dose Admin Iohexol 100 ml 03/07/23 14:15 03/07/23 14:02 Omnipaque 350 Mg/Ml 500 Ml Btl-Imaging Package IJ 04/06/23 23:59 100 ml DIRECTED CLEM Administration Sodium Chloride 50 ml 03/07/23 14:15 03/07/23 14:01 Normal Saline - Diluent 50 Ml Vial IJ 50 ml .FOR DI USE CLEM Administration Sodium Chloride 0 ml 03/07/23 14:04 03/07/23 14:04 Normal Saline Flush 10 Ml Syr IVP 10 ml PRN PRN Administration IV IV Catheter Type [Left diffusix Antecubital] IV Catheter Gauge [Left 20 Antecubital] Diagnostics 03/07/23 03/07/23 03/07/23 Range/Units 16:08 13:00 13:00 WBC 7.55 (4.4-10.8) 10^3/uL RBC 4.21 (3.93-5.22) 10^6/uL Hgb 13.6 (11.2-15.7) g/dL Hct 39.9 (36.0-46.0) % MCV 95 (80-95) fL MCH 32.3 (27.0-33.0) pg MCHC 34.1 (32.0-36.0) % RDW 12.7 (11.7-14.6) % Plt Count (130-400) 10^3/uL MPV (8.0-11.0) fL Immature Gran % 0.3 Neutrophils % 58.9 Lymphocytes % 29.7 Monocytes % 8.1 Eosinophils % 2.5 Basophils % 0.5 Nucleated RBC % 0.0 (0.0-0.3) % Absolute Neutrophils 4.45 (1.2-6.7) 10^3/uL Absolute Lymphocytes 2.24 (1.2-3.4) 10^3/uL Absolute Monocytes 0.61 (0.1-0.8) 10^3/uL Absolute Eosinophils 0.19 (0.0-0.7) 10^3/uL Absolute Basophils 0.04 (0.0-0.2) 10^3/uL RBC Morphology Normal PT 10.1 (9.1-11.1) sec INR 1.0 (0.9-1.1) APTT Cancelled 18.8 L (23.6-32.8) sec D-Dimer 849 H (<500) ng/mlFEU Sodium 139 (136-145) mmol/L Potassium 3.8 (3.5-5.1) mmol/L Chloride 107 (98-107) mmol/L Carbon Dioxide 20.3 L (21.0-32.0) mmol/L Anion Gap 11.7 H (3-11) mmol/L BUN 23 H (7-18) mg/dL Creatinine 1.1 H (0.55-1.02) mg/dL Est GFR (CKD-EPI 2020) 52.73 (mL/min/1.73m2) Glucose 100 (74-106) mg/dL Calcium 8.9 (8.5-10.1) mg/dL Total Bilirubin 0.3 (0.2-1.0) mg/dL AST 28 (15-37) U/L ALT 30 (14-59) U/L Alkaline Phosphatase 73 (46-116) U/L Troponin I < 50 < 50 (<or=60) ng/L NT-Pro-B Natriuret Pep 391 H (<300) pg/mL Total Protein 7.7 (6.4-8.2) g/dL Albumin 3.9 (3.4-5.0) g/dL Lipase 21 (16-77) U/L TSH 0.09 L (0.36-3.74) uIU/mL Free T4 1.42 (0.76-1.46) ng/dL Intake and Output - 24 Hour Total 03/07/23 12:23 thru 03/07/23 13:41 Intake Total 16.333 Balance 16.333 Weight 67.4 kg Intake: IV 16.333 Falls Risk Assessment History of Falls No History 03/07/23 12:45 Contributing Factors No Factors 03/07/23 12:45 Ambulatory Aids Independent 03/07/23 12:45 Tubes/Lines With any additional score 03/07/23 12:45 Gait Evaluation No gait disturbance 03/07/23 12:45 Cognition No cognitive impairment 03/07/23 12:45 Fall Total Score 20 03/07/23 12:45 Level of Risk Standard/Low Risk 03/07/23 12:45 Problems (Last Reviewed 03/07/23 @ 13:02 by Tomi Arenas DO) Chest pain (Acute) Unstable angina (Acute) v v v v v v v v v Sending and/or Receiving Nurses: Please use comment section below to note any information pertinent to the patient hand-off not included above. Information / Comments: Nitro running at 15 mls/hr Heparin running at 8 mls/hr Pt received a bolus of 4,000 units of heparin Pt is being transferred to [facility] L3 Wing B Report received from:Angelina Ramos RN
[2023-03-07] MEDS: Acetaminophen 500 MG TAB 1000 MG PO (17:21)
== END 2023-03-07 17:42 | disposition short-term general hospital (02) ==
PROVIDERS: Emergency Provider Student in an Organized Health Care Education/Training Program; PCP Nurse Practitioner Family
DX: I20.0 Unstable angina (principal); R07.9 Chest pain, unspecified; R06.02 Shortness of breath; I10 Essential (primary) hypertension; E78.00 Pure hypercholesterolemia, unspecified; E11.9 Type 2 diabetes mellitus without complications; Z82.49 Family history of ischemic heart disease and other diseases of the circulatory system; Z20.822 Contact with and (suspected) exposure to COVID-19; Z79.899 Other long term (current) drug therapy
CPT/HCPCS: 36415; 71275; 80053; 83690; 93005; 93308; 96374; 96376; 99285; 83880; 84439; 84443; 84484; 85025; 85379; 85610; 85730; 93010

== ENCOUNTER → 2023-07-16 04:21 | Outpatient (CLI) | payer OTHER, SELFPAY ==
--- NOTE | 2023-07-16 10:34 | DI.RAD_ITS ---
Exam(s) XR SHOULDER RT COMPLETE 2+V EXAM: XR SHOULDER RT COMPLETE 2+V CLINICAL HISTORY: increasing pain, rt shoulder pain, M25.511. TECHNIQUE: 2D digital imaging was performed. Five views. COMPARISON: No exams were available for comparison FINDINGS: BONES: No acute fracture is present. No bony destructive lesion is seen. Mild spurring at the greate r tuberosity. JOINTS: No dislocation present. Humeral head is normally positioned. Severe narrowing of the glenoh umeral joint. Mild periarticular spurring. The AC joint is unremarkable. SOFT TISSUE: Normal. 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 DATA REPOSITORY: RADIATION DOSE DELIVERED:
== END ==
PROVIDERS: PCP Nurse Practitioner Family; Visit Provider Nurse Practitioner Family
DX: M25.511 Pain in right shoulder (principal)
CPT/HCPCS: 73030

== ENCOUNTER 2023-07-24 08:19 | Outpatient (CLI) | payer OTHER, SELFPAY ==
--- NOTE | 2023-07-24 08:15 | RT.EKG_ITS ---
APPROVED REPORT Exam: Resting ECG Reason for Exam: chest pain Patient Location: O HR:73 bpm ECG Measurements Heart Rate 73 AXIS CO 161 P -54 QRSd 93 QRS -48 QT 399 T 59 QTc 440 Conclusion Sinus or ectopic atrial rhythm...P axis (-45,135) LAD, consider left anterior fascicular block...axis(240,-40), S>R II III aVF Abnormal R-wave progression, early transition...QRS area>0 in V2 Baseline wander in lead(s) V6
== END 2023-07-24 08:20 | disposition home or self-care (01) ==
LOC: DI.CARD 08:20
PROVIDERS: PCP Nurse Practitioner Family; Visit Provider Internal Medicine Cardiovascular Disease
DX: R07.9 Chest pain, unspecified (principal); I20.9 Angina pectoris, unspecified
CPT/HCPCS: 93010

== ENCOUNTER → 2023-07-24 13:49 | Outpatient (BNVA) | payer OTHER, SELFPAY | PROVIDERS: PCP Nurse Practitioner Family; Referring Provider Nurse Practitioner Family; Visit Provider Internal Medicine Cardiovascular Disease | DX: I25.118 Atherosclerotic heart disease of native coronary artery with other forms of angina pectoris (principal); R94.31 Abnormal electrocardiogram [ECG] [EKG] | CPT/HCPCS: 93005; 99213 ==

== ENCOUNTER 2023-08-11 06:02 | Outpatient (CLI) | payer OTHER, SELFPAY ==
[2023-08-11 12:09] LABS: HCT 44.9 % (36.0-46.0); HGB 14.3 g/dL (11.2-15.7); MCH 31.3 pg (27.0-33.0); MCHC 31.8 % (32.0-36.0); MCV 98 fL (80-95); MPV 10.1 fL (8.0-11.0); Platelet Count 471 10^3/uL (130-400); RBC 4.57 10^6/uL (3.93-5.22)
[2023-08-11 12:30] LABS: ALT 29 U/L (14-59); AST 20 U/L (15-37); Albumin 4.3 g/dL (3.4-5.0); Alkaline Phosphatase 106 U/L (46-116); Anion Gap 10.4 mmol/L (3-11); BUN 30 mg/dL (7-18); Bilirubin, Total 0.6 mg/dL (0.2-1.0); CO2 25.6 mmol/L (21.0-32.0); CREATININE 1.4 mg/dL (0.55-1.02); Calcium 9.3 mg/dL (8.5-10.1); Calculated LDL 75 mg/dL (<100); Chloride 104 mmol/L (98-107); Cholesterol 153 mg/dL (<200); Estimated GFR 39.48 (mL/min/1.73m2); Glucose 124 mg/dL (74-106); HDL Cholesterol 45 mg/dL (40-60); Potassium 4.4 mmol/L (3.5-5.1); Sodium 140 mmol/L (136-145); TSH (W/Ref FT4) 0.06 uIU/mL (0.36-3.74); Total Protein 7.7 g/dL (6.4-8.2); Triglyceride 169 mg/dL (<150)
== END 2023-08-11 06:03 | disposition home or self-care (01) ==
LOC: LOS 06:02
PROVIDERS: PCP Nurse Practitioner Family; Visit Provider Nurse Practitioner Family
DX: E89.0 Postprocedural hypothyroidism (principal); E11.9 Type 2 diabetes mellitus without complications; I25.118 Atherosclerotic heart disease of native coronary artery with other forms of angina pectoris
CPT/HCPCS: 36415; 80053; 80061; 85027; 83036; 84439; 84443

== ENCOUNTER → 2023-09-19 00:09 | Outpatient (CLI) | payer OTHER, SELFPAY ==
--- NOTE | 2023-09-19 08:45 | DI.DEXA_ITS ---
Exam(s) XR DEXA BONE DENSITY W/WO VISHAL EXAM: XR DEXA BONE DENSITY W/WO VISHAL CLINICAL HISTORY: screening for osteoporosis in postmenopausal woman,z78.0 TECHNIQUE: [employer] Horizon C densitometer analysis of left hip, lumbar spine and left forearm. Lat eral survey image of the thoracic and lumbar spine. The L3 and L4 vertebral bodies were excluded due to hardware. COMPARISON: Two thousand three and 2009 FINDINGS: Lateral view of the thoracic and lumbar spine shows question midthoracic compression fracture. Bone mineral density measurements of the lumbar spine correspond to a total T-score of -2.4, in the osteopenic range. This represents an 8.3 percent decrease from 2009 and 8.2 percent decrease from 15 07. Bone mineral density measurements of the left hip correspond to a total T-score of -2.4. This repre sents a 20 percent decrease from 2009 and 24.5 percent decrease from 2002.. The femoral neck T-score is -3.1, in the osteoporotic range.. Theleft forearm bone mineral density measurements correspond to a T-score of the distal 3rd of -2.6, in the osteoporotic range. This represents a 2.5 percent decrease from 14/02. Forearm was not anal yzed in 2002.. IMPRESSION: Osteoporosis of the forearm and hip. Osteopenia of the spine.
--- NOTE | 2023-09-19 08:45 | DI.MAMMO_ITS ---
Exam(s) MAMMO SCREENING EXAM: MAMMO SCREENING CLINICAL HISTORY: screening,z12.39 TECHNIQUE: Bilateral full field digital CC and MLO mammographic images were obtained with 3D tomosyn thesis and utilizing computer aided detection (CAD). COMPARISON: Available for comparison. FINDINGS: Masses/Architectural Distortion: None seen. Microcalcifications: No suspicious pleomorphic-type are seen. Stable calcifications are seen in both breasts. Skin Thickening/Nipple Retraction: None. IMPRESSION: 1. No significant interval change with no specific features of malignancy noted. 2. Unless there is more urgent need, screening mammography is recommended, as per [employer] guidelines. BI-RADS Category 1 - Negative Breast Density - Category B - Scattered areas of fibroglandular density Breast density category C or D implies that the patient has dense breast tissue. Dense breast tissue is very common and is not abnormal but dense breast tissue can make it harder to find cancer on a ma mmogram. Also, dense breast tissue may increase their breast cancer risk. This information about the result of the mammogram report was provided to the patient to raise their awareness. Use this report when you speak with the patient about their risks for breast cancer, which includes their family hist ory. At that time, you may recommend for more screening tests (Ultrasound or MRI) as they might be us eful based on their risk. A negative radiographic report should not delay biopsy if a dominant or clinically suspicious mass is present. Up to ten percent of cancers are not identified on mammography. A negative report may reinforce clinical impression. Adenosis and dense breasts may obscure an underlying neoplasm. False positive reports average 6 to 10%. Patient will receive a letter notifying them of these results.
== END ==
PROVIDERS: PCP Nurse Practitioner Family; Visit Provider Nurse Practitioner Family
DX: Z12.31 Encounter for screening mammogram for malignant neoplasm of breast (principal); Z78.0 Asymptomatic menopausal state; M81.0 Age-related osteoporosis without current pathological fracture
CPT/HCPCS: 77063; 77067; 77080

== ENCOUNTER → 2023-09-24 09:11 | Outpatient (BNVA) | payer OTHER, SELFPAY | PROVIDERS: PCP Nurse Practitioner Family; Referring Provider Nurse Practitioner Family; Visit Provider Student in an Organized Health Care Education/Training Program | DX: M19.011 Primary osteoarthritis, right shoulder (principal) | CPT/HCPCS: 20610; 99213; J1010 ==

== ENCOUNTER 2023-09-30 05:15 | Outpatient (CLI) | payer OTHER, SELFPAY ==
[2023-09-30 12:58] LABS: TSH (W/Ref FT4) 0.13 uIU/mL (0.36-3.74)
[2023-09-30 13:21] LABS: FREE T4 1.26 ng/dL (0.76-1.46)
== END 2023-09-30 05:16 | disposition home or self-care (01) ==
LOC: LOS 05:17
PROVIDERS: PCP Nurse Practitioner Family; Visit Provider Nurse Practitioner Family
DX: E89.0 Postprocedural hypothyroidism (principal)
CPT/HCPCS: 36415; 84439; 84443

== ENCOUNTER → 2023-10-31 00:38 | Outpatient (CLI) | payer OTHER, SELFPAY ==
--- NOTE | 2023-10-31 08:51 | DI.CT_ITS ---
Exam(s) CT UPPER EXTREMITY RT WO EXAM: CT UPPER EXTREMITY RT WO CLINICAL HISTORY: SURGICAL PLANNING, ARTHRITIS RT GLENOHUMERAL JOINT, M19.011 TECHNIQUE: Imaging Protocol: Axial computed tomography images with coronal and sagittal reformatted images were created and reviewed. CONTRAST MATERIAL: Intravenous: None COMPARISON: CR XR SHOULDER RT COMPLETE 2+V from 07/16/2023 FINDINGS: OSSEOUS: No evidence of fracture or dislocation of the glenohumeral joint. However, there is advanced osteoar thritic degenerative change in the glenohumeral joint with uniform advanced joint space narrowing and degenerative subarticular cysts on both sides the joint and there are posing osteophytes on the infe rior articular surfaces of the humeral head and osseous glenoid. The subacromial space is not diminished and there are no abnormal soft tissue calcifications within t his space. Greater tuberosity appears unremarkable. Moderate degenerative changes noted in the AC j oint. No significant osseous lesions evident. IMPRESSION: Advanced osteoarthritic degenerative changes in the right shoulder glenohumeral joint. There are degenerative changes in the ipsilateral AC joint. RADIATION DOSE DELIVERED: 460.3mGy.cm Total DLP DATA REPOSITORY: All CT scans at this facility are submitted to the National Radiology Data Registry (NRDR) Dose Index Registry (DIR) with the [employer] (A[employer]). RADIATION OPTIMIZATION: All CT scans at this facility use at least one of these dose optimization te chniques: automated exposure control; mA and/or kV adjustment per patient size (includes targeted exa ms where dose is matched to clinical indication); or iterative reconstruction.
== END ==
PROVIDERS: PCP Nurse Practitioner Family; Visit Provider Student in an Organized Health Care Education/Training Program
DX: M19.011 Primary osteoarthritis, right shoulder (principal)
CPT/HCPCS: 73200

== ENCOUNTER → 2023-11-11 14:43 | Outpatient (BNVA) | payer OTHER, SELFPAY | PROVIDERS: PCP Nurse Practitioner Family; Referring Provider Nurse Practitioner Family; Visit Provider Student in an Organized Health Care Education/Training Program | DX: M19.011 Primary osteoarthritis, right shoulder (principal) | CPT/HCPCS: 99214 ==

== ENCOUNTER 2023-12-10 03:09 | Outpatient (CLI) | payer OTHER, SELFPAY ==
[2023-12-10 12:42] LABS: TSH (W/Ref FT4) 2.15 uIU/mL (0.36-3.74)
== END 2023-12-10 03:10 | disposition home or self-care (01) ==
LOC: LOS 03:09
PROVIDERS: PCP Nurse Practitioner Family; Visit Provider Nurse Practitioner Family
DX: E89.0 Postprocedural hypothyroidism (principal)
CPT/HCPCS: 36415; 84443

== ENCOUNTER 2023-12-25 06:02 | Day surgery (SDC) | payer OTHER, SELFPAY ==
[2023-12-25] VITALS (29 sets, daily range): BP systolic 91–170; BP diastolic 41–72; PULSE 50–71; RESP 16–23; TEMP 35.9–36.6; O2SAT 92–98; BMI 26.9
--- NOTE | 2023-12-25 06:59 | W.ANESPRE ---
General Info Date of Service Date Performed: 12/25/23 Height: 4 ft 11 in Weight: 60.5 kg Body Mass Index (BMI): 26.9 Surgical Procedure: Operation Date: 12/25/23 07:40 Proposed Procedure Side Surgeon p Shoulder Reverse Total Arthroplasty, Biceps Tenodesis Right Otis Fishman MD Meds Allergies and Home Medications Allergies Allergy/AdvReac Type Severity Reaction Status Date / Time nifedipine (From Procardia) Allergy Severe Cardiac Verified 12/25/23 06:17 Dysrythmia house dust Allergy Mild RHINITIS Verified 12/25/23 06:17 FUR Allergy Other (See Uncoded 12/25/23 06:17 Comment) Home Medication ?Medication ?Instructions ?Recorded calcium carbonate 500 mg-vitamin 1 ea PO BID 03/05/13 D3 5 mcg (200 unit) tablet (Calcium 500 + D) Centrum Silver Tablet 1 ea PO DAILY 07/06/13 acetaminophen 650 mg 650 mg PO PRN 07/06/13 tablet,extended release (Tylenol Arthritis Pain) blood sugar diagnostic (FreeStyle #100 strips 04/14/14 Lite Strips) lancing device (BD Lancet Device) #100 ea 04/14/14 ascorbic acid (vitamin C) 500 mg 500 mg PO DAILY 01/20/18 tablet clobetasol 0.05 % topical ointment 1 applic topical BID PRN face #45 03/11/22 grams trazodone 50 mg tablet See Rx Instructions .Route 06/16/23 .COMPLEX #135 tabs gabapentin 300 mg capsule See Rx Instructions .Route 07/07/23 .COMPLEX #90 caps aspirin 81 mg tablet,delayed 81 mg PO DAILY 07/15/23 release (Adult Low Dose Aspirin) atorvastatin 80 mg tablet 80 mg PO DAILY 07/24/23 metoprolol tartrate 25 mg tablet 50 mg PO DAILY 07/24/23 naloxone 4 mg/actuation nasal 1 spray intranasal Q2-3M PRN 08/06/23 spray (Narcan) opioid overdose #2 ea clopidogrel 75 mg tablet (Plavix) 75 mg PO DAILY #90 tab-caps 09/02/23 losartan 100 mg tablet (Cozaar) 100 mg PO DAILY #90 tabs 09/02/23 nitroglycerin 0.4 mg sublingual 0.4 mg sublingual Q5-15M PRN chest 09/02/23 tablet pain #7 tabs metformin 500 mg tablet,extended See Rx Instructions .Route 09/15/23 release 24 hr .COMPLEX #90 tabs pantoprazole 20 mg tablet,delayed 20 mg PO DAILY #90 tabs 09/23/23 release topiramate 100 mg tablet (Topamax) 100 mg PO HS #90 tab-caps 09/23/23 levothyroxine 100 mcg tablet 100 mcg PO DAILY #90 tabs 10/03/23 butorphanol 10 mg/mL nasal spray 1 spray NS Q3H PRN #2.5 mL 10/14/23 naproxen 250 mg tablet 250 mg PO BID PRN Moderate pain 12/25/23 #20 tabs tramadol 50 mg tablet 50 mg PO TID PRN severe pain 12/25/23 (scale score 7-10) #14 tabs Current Visit Medications: Current Medications Generic Name Dose Route Start Last Admin Trade Name Freq PRN Reason Stop Dose Admin Ringer's Solution 1,000 mls @ 30 mls/hr 12/25/23 06:00 IV 12/25/23 23:59 INFUSION CLEM Cefazolin Sodium/Dextrose 2 gm in 50 mls @ 100 mls/hr 12/25/23 06:00 Ancef Duplex IVPB 12/25/23 23:59 PREOP CLEM Tranexamic Acid/Sodium Chloride 1,000 mg in 100 mls @ 600 mls/hr 12/25/23 06:00 IVPB 12/25/23 23:59 PREOP CLEM IV Miscellaneous Supplies 1 each 12/25/23 06:00 Iv Access IV 12/25/23 23:59 DIRECTED CLEM Sodium Chloride 0 ml 12/25/23 06:00 Normal Saline Flush 10 Ml Syr IV 12/25/23 23:59 PRN PRN Sodium Chloride 0 ml 12/25/23 06:00 Normal Saline 10 Ml Vial IJ 12/25/23 23:59 DIRECTED PRN Sterile Water 0 ml 12/25/23 06:00 Water,Injection,Sterile 10 Ml Vial IJ 12/25/23 23:59 DIRECTED PRN PFSH Active Problems Active Problems: Problem Status Onset Code Arthritis of right glenohumeral joint Acute M19.011 Coronary artery disease Chronic I25.10 Right shoulder pain Acute M25.511 Oral candidiasis Acute B37.0 Shortness of breath Acute R06.02 Chest pain at rest Acute R07.9 Angina pectoris, unspecified Chronic I20.9 Anemia Chronic 03/26/12 D64.9 Polypharmacy Chronic Z79.899 Polyp of colon Chronic K63.5 Irritable bowel syndrome with diarrhea Chronic 04/20/15 K58.0 Hypothyroidism Chronic E03.9 Gastroesophageal reflux disease with esophagitis Chronic K21.0 Diabetes mellitus, type II Chronic E11.9 Medical History Medical History Fatigue due to sleep pattern disturbance Exposure to hepatitis C Negative Screen 08/2021 Carpal tunnel syndrome on both sides Right > left Diarrhea Anxiety pt denies Lumbar radiculitis Hx of cervical cancer Hx of thyroid cancer Primary insomnia (04/20/15) Osteopenia (03/07/10) Hyperlipidemia (08/27/11) Atypical migraine Memory loss Hypertension Chronic migraine Surgical History Surgical History Hx of cardiac catheterization History of arthroplasty H/O mastoidectomy Tonsillectomy and adenoidectomy (01/08/06) Thyroid (~02/2012) COMPLETE THYROIDECTOMY, [facility] [place]; - LYMPH NODES JOINT REPAIR (01/08/06) RIGHT THUMB Vaginal hysterectomy (01/07/86) OVARIES REMAIN EGD - MAC (07/29/08) Colonoscopy - MAC 09/26/09 Tobacco Smoking/Tobacco Use Status: Never Passive smoking exposure: No Alcohol Alcohol Intake: current Alcohol intake frequency: a few times a month Alcohol type: hard liquor Substance Use Substance use: Never Substance use type: does not use Counseling provided: none Vital Signs and Lab Results Vital Signs Most Recent Vital Signs in EMR: Most Recent Vital Signs Temp Pulse Resp BP Pulse Ox 35.9 C L 71 16 159/70 H 98 12/25/23 06:30 12/25/23 06:30 12/25/23 06:30 12/25/23 06:30 12/25/23 06:30 Lab Results Blood Type / Crossmatch: No Data to Display Complete Blood Count: No Data to Display Complete Metabolic Panel: No Data to Display Liver Function Panel: No Data to Display Coagulation Panel: No Data to Display Cardiac Panel: No Data to Display Arterial Blood Gas: No Data to Display Venous Blood Gas: No Data to Display Pancreas Panel: No Data to Display Thyroid Panel: Thyroid Stimulating Hormone (TSH) 2.15 uIU/mL (0.36-3.74) 12/10/23 08:34 Infectious Disease: No Data to Display Blood Cultures: No Data to Display Toxicology Panel: No Data to Display Imaging and Studies Imaging and Studies Study information below may be from another EMR and interpreted by another provider. Please see original notes in EMR for more complete details. EKG Summary: EKG PATIENT NAME: Neelima Akbar UNIT #: [id number] ORDERING PROVIDER: Anni Bonner M.D. PRIMARY CARE PROVIDER: Sylvester Arrington DNP DATE/TIME OF SERVICE: 07/24/23 1301 : 1950 PERFORMING LOCATION: .CARD APPROVED REPORT Exam: Resting ECG Reason for Exam: chest pain Patient Location: O HR:73 bpm ECG Measurements Heart Rate 73 AXIS ME 161 P -54 QRSd 93 QRS -48 QT 399 T59 QTc 440 Conclusion Sinus or ectopic atrial rhythm...P axis (-45,135) LAD, consider left anterior fascicular block...axis(240,-40), S>R II III aVF Abnormal R-wave progression, early transition...QRS area>0 in V2 Baseline wander in lead(s) V6 <Electronically signed by ANNI BONNER MD in OV> E-Sign Date: 07/24/23 E-Sign Time: 5829 Stress Test Summary: Patient Name: Neelima Castano Unit #: [id number] Loc: Ordering Provider: Petty Pinto NP Status: REG CLI Primary Care Provider: Petty Pinto NP Date of Exam: 10/15/21 Sex: F Admission Date: 10/15/21 : 1950 Age: 70 APPROVED REPORT Exam: Exercise Treadmill Patient Location: Out-Patient Room/Bed: Stress Nurse: Glendy Lai RN Ordering Provider:PETTY PINTO, Contact Number: [phone] BMI: 26.85 Baseline Rhythm: Sinus Rhythm Comment: PVCs Indications: CHEST PAIN AT REST, SOB, ANEMIA Medical History Medical History: Anemia, Angina, HTN, HLD, DM II, Anxiety Cardiac Medications: Metoprolol tartrate, Metformin, Nitro, Losartan, Atorvastatin, Clopidogrel Allergies: Nifedipine Cardiac Risk Factors: FHX of CAD, HTN, Hyperlipidemia, DM Previous Cardiac Procedures: None Pretest Chest Pain Characteristics: No chest pain Exercise History: Sedentary Physical Disabilities: None Lung Sounds: Clear to auscultation Heart Sounds: Regular, Regular Stress Test Details Test: Exercise stress testing was performed using a modified Aaron protocol. Nuclear Acquisition: Rest Tc-99m/Stress Tc-99m 1 day Rest Isotope: Tc-99m Sestamibi. Dose: 10.0 Date: 10/15/2021 Injection Time: 1115 Stress Isotope: Tc-99m Sestamibi. Dose: 31.0 Date: 10/15/2021 Injection Time: 1310 HR Resting HR Supine: 79 bpmMax Heart Rate (APMHR): 148.679331 bpm Resting HR Standin bpmTarget HR (85% APMHR): 125.620533 bpm Max HR Achieved: 148 bpm % of APMHR: 100.00 Recovery HR: 88 bpm HR response to stress: Accelerated HR response to stress Comment: Metoprolol tartrate held for 48 hours. BP Resting BP Supine: 142/82 mmHg Resting BP Standin/78 mmHg Max BP: 184/82 mmHg Recovery BP: 148/80 mmHg ECG Resting ECG: Sinus Rhythm Ectopy: PVCs Stress ECG: Sinus Tachycardia ST Change: No significant ST segment changes noted Arrhythmia: PVCs, PACs Recovery ECG: Sinus Rhythm Recovery ST Change: No significant ST segment changes noted Recovery Arrhythmia: PVCs, PVC couplet, PACs Clinical Reason for Termination: Dyspnea, Fatigue Stress Symptoms: Dyspnea, Leg Fatigue, General Fatigue Exercise duration: 2 min29 sec Highest Stage Reached: Stage 0: 1.7 mph at 0% grade. Exercise capacity: 2.30 METs Rate Pressure Product: [id number] Stress ECG Conclusion 1. The patient exercised for 2 minutes and 30 seconds (2.3 METS). Exercise was stopped due to leg fatigue. 2. There is no evidence of ischemia on the ECG portion exam. Despite the poor exercise tolerance the patient was able to achieve target heart rate. Stress Test Summary STAGETime (mins)Speed (mph)Grade (%)[id number] [id number] 1 min [id number]/82 3 min iciodnqn31184/82 6 min ecmcmnws82053/80 Ebtpwv25759/82 Hlhldzgk78993/78 MPI Conclusion The patient's LV augmented appropriately with stress (EF 67%), there is mild hypokinesis of the basal septum. There is a small mostly fixed perfusion defect at the basal septum. This likely represents an abnormal stress test. Radiologist Interpretation Radiologist Interpretation by: Kristin Amezcua MD Interpretation Date/Time: 10/15/2021 16:44:38 Ordered By: Petty Pinto NP CC: HELEN MARRERO,ANNI GRIFFIN Dictated By: Anni Bonner M.D. 10/15/21 1327 <Electronically signed by Anni Bonner M.D. in OV> 10/16/21 0815 Transcribed By: Anni Bonner MD This is privileged, confidential information intended only for the provider named. Any use or distribution by any person other than this provider is strictly prohibited. If you receive this report in error, please notify us immediately at [phone] and return the original report to us at the address above. Thank-you. Echocardiogram Summary: Patient Name: NEELIMA CASTANO Unit #: [id number] Loc: DI Ordering Provider: Petty Pinto NP Status: REG CLI Primary Care Provider: Petty Pinto NP Date of Exam: 05/28/18 Sex: F : 1950 Age: 67 Exam(s) a US:US echocardiogram *[facility]* *[facility]* [address] [place] [address] Date of study: 05/28/2018 Transthoracic Echocardiography M-mode, complete 2D, complete spectral Doppler, and color Doppler *STUDY CONCLUSIONS* Summary: 1. Study data: Comparison was made to the study of 05/08/2012. 2. Left ventricle: The cavity size was normal. Systolic function was normal. The estimated ejection fraction was 60-65%. Some parameters suggest diastolic dysfunction. Doppler parameters are consistent with high ventricular filling pressure. 3. Aortic valve: There was mild regurgitation. 4. Right ventricle: The cavity size was normal. Wall thickness was normal. Systolic function was normal. 5. Atrial septum: No defect or patent foramen ovale was identified. 6. Pulmonary arteries: Pulmonary systolic pressure was in the range of 25mm Hg to 35mm Hg. 7. Inferior vena cava: The vessel was patent and normal in size. The respirophasic diameter changes were in the normal range (greater than or equal to 50%), consistent with normal central venous pressure. *PATIENT PRESENTATION* Height: 149.9cm ((59in) ) S/D Pressure: 152 / 72 Weight: 55.3kg ((121.7lb) ) BSA: 1.53m^2 Test start time: 10:45 AM. Test stop time: 11:40 AM. PERFORMING Unknown PERFORMING [facility] ORDERING Petty Pinto REFERRING Petty Pinto [employer]IGHTH[employer] KEEPER Pinky Cardona RT (R)(CT), [facility] *PROCEDURE DATA* Procedure information: The patient was identified by two identifiers. This study was interpreted by [facility]. Pertinent images and digital data are archived for permanent storage and are available for subsequent review. Comparison was made to the study of 05/08/2012. Study status: Routine. Transthoracic echocardiography. M-mode, complete 2D, complete spectral Doppler, and color Doppler. A Transthoracic Echocardiogram was performed. Scanning was performed from the parasternal, apical, subcostal, and suprasternal notch acoustic windows. Images were obtained using an [id number] cardiac ultrasound machine. Image quality was adequate. Study completion: The patient tolerated the procedure well. History: PMH: Fatigue, chest discomfort, hypertension. *CARDIAC ANATOMY* Left ventricle: The cavity size was normal. Systolic function was normal. The estimated ejection fraction was 60-65%. The tissue Doppler parameters were abnormal. Some parameters suggest diastolic dysfunction. Doppler parameters are consistent with high ventricular filling pressure. Aortic valve: Trileaflet. Doppler: There was no stenosis. There was mild regurgitation. VTI ratio of LVOT to aortic valve: 0.77. Valve area (VTI): 2.3cm^2. Indexed valve area (VTI): 1.5cm^2/m^2. Peak velocity ratio of LVOT to aortic valve: 0.74. Valve area (Vmax): 2.2cm^2. Indexed valve area (Vmax): 1.4cm^2/m^2. Mean velocity ratio of LVOT to aortic valve: 0.71. Valve area (Vmean): 2.1cm^2. Indexed valve area (Vmean): 1.4cm^2/m^2. Mean gradient (S): 3.5mm Hg. Peak gradient (S): 6.8mm Hg. Aorta: Aortic root: The aortic root was normal in size. Ascending aorta: The ascending aorta was moderately dilated. Mitral valve: Doppler: There was no evidence for stenosis. There was trivial regurgitation. Valve area by pressure half-time: 2.8cm^2. Indexed valve area by pressure half-time: 1.8cm^2/m^2. Peak gradient (D): 2.3mm Hg. Left atrium: The atrium was normal in size. Atrial septum: No defect or patent foramen ovale was identified. Right ventricle: The cavity size was normal. Wall thickness was normal. Systolic function was normal. Pulmonic valve: Doppler: There was no evidence for stenosis. There was no significant regurgitation. Tricuspid valve: Doppler: There was mild regurgitation. Pulmonary artery: Poorly visualized. Pulmonary systolic pressure was in the range of 25mm Hg to 35mm Hg. Right atrium: The atrium was normal in size. Pericardium: There was no pericardial effusion. Systemic veins: Inferior vena cava: Well visualized. The vessel was patent and normal in size. The respirophasic diameter changes were in the normal range (greater than or equal to 50%), consistent with normal central venous pressure. Measurements Left ventricle Value Reference LV ID, ED, PLAX 4.8 cm 3.5 - 6.0 LV ID, ES, PLAX 3.1 cm 2.1 - 4.0 LV PW thickness, ED, PLAX 0.7 cm LV end-diastolic volume, 1-p A2C 50 ml LV ejection fraction, 1-p A2C 53 % LV end-diastolic volume, 1-p A4C 63 ml LV ejection fraction, 1-p A4C 54 % LV e', lateral 0.045 m/sec LV E/e', lateral 17 LV e', medial 0.053 m/sec LV E/e', medial 14 LV e', average 0.049 m/sec LV E/e', average 16 Ventricular septum Value Reference IVS thickness, ED, PLAX 0.9 cm LVOT Value Reference LVOT ID, A-P 1.9 cm LVOT area 3 cm^2 LVOT peak velocity, S 0.97 m/sec LVOT mean velocity, S 0.63 m/sec LVOT VTI, S 19.3 cm LVOT peak gradient, S 3.7 mm Hg LVOT mean gradient, S 1.9 mm Hg Stroke volume (SV), LVOT DP 57 ml Stroke index (SV/bsa), LVOT DP 38 ml/m^2 Aortic valve Value Reference Aortic valve peak velocity, S 1.3 m/sec Aortic valve mean velocity, S 0.89 m/sec Aortic valve VTI, S 25.0 cm Aortic mean gradient, S 3.5 mm Hg Aortic peak gradient, S 6.8 mm Hg VTI ratio, LVOT/AV 0.77 Aortic valve area, VTI 2.3 cm^2 Velocity ratio, peak, LVOT/AV 0.74 Aortic valve area, peak velocity 2.2 cm^2 Velocity ratio, mean, LVOT/AV 0.71 Aortic valve area, mean velocity 2.1 cm^2 Aortic valve area/bsa, mean velocity 1.4 cm^2/m^2 Aorta Value Reference Aortic root ID, ED 3.0 cm Ascending aorta ID, A-P, S 3.6 cm Left atrium Value Reference LA ID, A-P, ES 3.8 cm LA ID/bsa, A-P Carotid Artery Summary:: Patient Name: NEELIMA CASTANO Unit #: [id number] Loc: MS Ordering Provider: CARRINGTON ANNE MD Status: DIS IN Primary Care Provider: FARNAZ TORRES MD Date of Exam: 02/25/13 Sex: F : 1950 Age: 62 Exam(s): [id number] US:Carotid Reason for exam: TIA Medical History: Hx CVA Comment: CAROTID ULTRASOUND: Routine examination was performed. There is mild atherosclerosis present. No hemodynamically significant velocity elevations are present. The vertebral arteries are antegrade. IMPRESSION: No evidence of hemodynamically significant cervical carotid artery stenosis. CC: Farnaz Torres MD Dictated By: KRISTIN AMEZCUA MD <Electronically signed by KRISTIN AMEZCUA MD> 02/26/13 6334 Transcribed By: FARNAZ AYALA 02/26/13 6864 Technologist: LAYTON CLAROS This is privileged, confidential information intended only for the provider named. Any use or distribution by any person other than this provider is strictly prohibited. If you receive this report in error, please notify us immediately at [phone] and return the original report to us at the address above. Thank-you. Anesthesia Assessment and Plan Anesthesia History Personal History: No History of Anesthesia Complications Family History: No Family History of Anesthesia Complications Exercise Tolerance Exercise Tolerance: Metabolic Equivalents>4 Pertinent Negatives Pertinent Negatives: No Symptoms of GERD and No Major Pulmonary Symptoms or Complaints Cardiac & Pulmonary Exam Cardiac Exam: Normal S1/S2 Heart Sounds Pulmonary Exam: Clear Bilateral Breath Sounds Cardiac and Pulmonary Comment:: METS 2.3 on last exercise. Last CHF exacerbation 02/2023 ([facility] cath). Implantable Cardiac Device Does patient have a Pacemaker or an ICD?: No Airway Exam Known Difficult Airway: No Mallampati Class: 3 Mouth Opening: Narrow (< 3cm) Thyromental Distance: Less than 3 cm Neck Range of Motion: Full ROM Neck Circumference: Normal Teeth Condition: Normal Dentition and Generalized Poor Dentition ASA Classification ASA Score: ASA 3 Emergency Case?: No NPO Status NPO Status: NPO Clears >2 hours, Solids >8 hours Anesthesia Plan Resuscitation Status: Full Code Anesthesia Technique: General Anesthesia Airway Planned: Endotracheal Tube Pain Management: Surgeon and patient request nerve block Monitors Used: Standard Monitors
--- NOTE | 2023-12-25 07:09 | W.PM.DSUDISC ---
Date of service: 12/25/23 Time of Service: 14:00 Discharge Plan Disposition Patient Disposition: Home Condition: Stable Discharge Details Attending Provider: Otis Fishman Primary Care Provider: Sylvester Glodman Home Meds and New Rx's Prescriptions: New naproxen 250 mg tablet 250 mg PO BID PRN (Reason: Moderate pain) Qty: 20 0RF tramadol 50 mg tablet 50 mg PO TID PRN (Reason: severe pain (scale score 7-10)) Qty: 14 0RF Continued aspirin [Adult Low Dose Aspirin] 81 mg tablet,delayed release (DR/EC) 81 mg PO DAILY metoprolol tartrate 25 mg tablet 50 mg PO DAILY Rx Instructions: for migraine prevention atorvastatin 80 mg tablet 80 mg PO DAILY Patient [place] [facility] [place] ascorbic acid (vitamin C) 500 mg tablet 500 mg PO DAILY losartan [Cozaar] 100 mg tablet 100 mg PO DAILY Qty: 90 3RF clopidogrel [Plavix] 75 mg tablet 75 mg PO DAILY Qty: 90 4RF nitroglycerin 0.4 mg tablet, sublingual 0.4 mg SL Q5-15M PRN (Reason: chest pain) Qty: 7 1RF Rx Instructions: SL EVERY 5 MINUTES, until response; do not exceed 3 doses per episode naloxone [Narcan] 4 mg/actuation spray,non-aerosol 1 spray intranasal Q2-3M PRN (Reason: opioid overdose) Qty: 2 4RF Rx Instructions: spray 1 dose into ONE nostril; alternate nostrils w each dose until help arrives calcium carbonate-vitamin D3 [Calcium 500 + D] 1 EACH tablet 1 ea PO BID acetaminophen [Tylenol Arthritis Pain] 650 MG tablet extended release 650 mg PO PRN CENTRUM SILVER TABLET 1 EACH tablet 1 ea PO DAILY (DME) FreeStyle Lite Strips 1 EACH strip 1 ea Miscellaneous DAILY Qty: 100 Rx Instructions: dx: 250.00 (DME) lancing device [BD Lancet Device] 1 EACH misc 1 ea Miscellaneous DAILY Qty: 100 Rx Instructions: 250.00, use with Freestyle lite clobetasol 0.05 % ointment 1 applic TP BID PRN (Reason: face) Qty: 45 0RF Rx Instructions: apply to face prn trazodone 50 mg tablet See Rx Instructions .ROUTE .COMPLEX Qty: 135 3RF Dose Instruction: TAKE 1/2 TABLET (25MG) TO 1 AND 1/2 TABLETS (75MG) BY MOUTH EVERY NIGHT AT BEDTIME Rx Instructions: TAKE 1/2 TABLET (25MG) TO 1 AND 1/2 TABLETS (75MG) BY MOUTH EVERY NIGHT AT BEDTIME gabapentin 300 mg capsule See Rx Instructions .ROUTE .COMPLEX Qty: 90 3RF Dose Instruction: TAKE 1 CAPSULE BY MOUTH TWICE DAILY Rx Instructions: 1 cap po qd metformin 500 mg tablet extended release 24 hr See Rx Instructions .ROUTE .COMPLEX Qty: 90 3RF Dose Instruction: TAKE 1 TABLET BY MOUTH TWICE DAILY Rx Instructions: TAKE 1 TABLET BY MOUTH once daily topiramate [Topamax] 100 mg tablet 100 mg PO HS Qty: 90 3RF pantoprazole 20 mg tablet,delayed release (DR/EC) 20 mg PO DAILY Qty: 90 3RF levothyroxine 100 mcg tablet 100 mcg PO DAILY Qty: 90 0RF butorphanol 10 mg/mL spray,non-aerosol 1 spray NS Q3H PRN Qty: 2.5 2RF Rx Instructions: FOR MIGRAINE - limit to 3 times per week. Discharge Instructions Additional Instructions: Surgery: Right reverse total shoulder arthroplasty (constrained liner) with biceps tenodesis Activity: Do not lift anything heavier than a coffee. You should keep your arm at your side in a relatively neutral position at all times except for gentle range of motion exercises, physical therapy, and essential activities. You should use the sling whenever you are out of the house. At home it is best to remove the sling and rest the arm on a pillow at your side or support the operative side with your other hand. A physical therapy prescription will be sent electronically to start in about 3 weeks. STANDARD Reverse TSA Protocol. Resume already prescribed Plavix and aspirin, start tomorrow morning Prescriptions: Naproxen 250 mg take 1 every 12 hours with a meal as needed for moderate pain (use cautiously with Plavix and aspirin) Tramadol 50 mg take 1 every 8 hours as needed for severe pain You may use nvrb-bur-oppimhx Tylenol (acetaminophen) as needed for mild pain. These pain medications may be taken all at once or in different combinations as needed. Also, recommend Colace (docusate) as a stool softener as surgery and pain medicine cause constipation. You may try ppid-bip-fdztftm diphenhydramine (Benadryl) 25-50 mg nightly as a sleep aid Dressings: Leave dressing in place until follow-up. Keep clean and dry at all times. No showers please. Follow-up: 10-[address] Fishman 01/06/24 @ 10:30 AM You may take off the leg compression stockings this evening at home. You may also leave them on a few days longer if you have a history of leg swelling or edema. Please call the office during business hours with any questions or concerns. Let us know right away if you develop any redness, drainage, fevers, chest pain, or trouble breathing. Do not drink alcohol or drive for at least 24 hours after anesthesia. Stand Alone Forms: Anesthesia Discharge Inst., Sammi.Nerve Block Instructions, Chaim Campos (DSU) Discharge Orders Discharge Orders: Discharge Order (Routine); Ordered 12/25/23 Ordered By: Myke Orosco Discharge Data Discharge Date/Time-TO BE ENTERED AT DEPARTURE: 12/25/23 13:45 DS: Diagnosis Discharge Diagnosis (1) Arthritis of right glenohumeral joint: Status: Acute
[2023-12-25] MEDS: Lactated Ringers 1,000 ML 30 ML IV (07:15)
--- NOTE | 2023-12-25 07:24 | ROE_ITS ---
Date of service: 12/25/23 Time of Service: 07:30 Operative Note Operative Note DATE OF PROCEDURE: 12/25/23 PRE-OP DIAGNOSIS: Right: 1. End-stage glenohumeral arthritis 2. Long head of the biceps tendinopathy POST-OP DIAGNOSIS: same PROCEDURE: Right: 1. Reverse total shoulder arthroplasty, CPT # 27185 2. Open biceps tenodesis, CPT # 47745 The assistant at surgery was medically required as this procedure involves retraction, protection of neurovascular structures, and manipulation of multiple instruments and implants at the same time, which cannot be done without a skilled assistant at surgery. SURGEON: Otis Fishman [facility] SUPPORT SPECIALIST: Myke Orosco ANESTHESIA TYPE: Local By Surgeon, General LMA/ETT and Primary Nerve Block Refer to Anesthesia Record ESTIMATED BLOOD LOSS: 75 COMPLICATIONS: None Patient was transported to: PACU Patient's condition: stable Implants: [employer] modular glenoid system baseplate 24 mm +2mm Lat [employer] modular glenoid system central screw 25 mm [employer] modular glenoid system peripheral locking screws 32 mm inferior, 32 mm superior, 16 mm posterior, none anterior [employer] modular glenoid system glenosphere 36 +4 mm lateralized [employer] humeral stem 135 degrees size 6 [employer] suture cup size 36 neutral [employer] spacer size 36 +6 mm [employer] humeral insert size 36 +3 mm Indications: Please see complete medical record for details. Findings: Diminutive long head biceps with significant tenosynovitis about it in the groove. High-grade large tearing supraspinatus and infraspinatus and high-grade partial tearing subscapularis. End-stage glenohumeral arthritis. Procedure Description: In the operating room, general anesthesia was induced. The patient was posit ioned beachchair on the operating room table. All bony prominences were well- padded. Preoperative antibiotics were administered. The shoulder was prepped and draped in the usual sterile fashion for shoulder arthroplasty. The correct patient, procedure, and side of the procedure were all verified prior to incision. The deltopectoral approach was preinjected with 0.25% bupivacaine containing ep inephrine and taken to the anterior shoulder. Care was taken to bluntly dissect the interval between the deltoid and pectoralis major muscles and to identify the cephalic vein within its fat stripe. The the vein was mobilized laterally. Subdeltoid space and conjoined tendon were freed of adhesions. The long head of the biceps tendon was identified just lateral to the lesser tuberosity. The up permost margin of the pectoralis major tendon was released from the proximal humerus. The long head of the biceps tendon was tenodesed in situ using SutureTape in a gpretb-ds-unvnm fashion securing it superior margin the pectoralis major tendon. The biceps tendon was amputated and followed proximally to identify the rotator interval. A subscapularis peel was done of the partially torn upper portion and then tenotomy of the lower portion while carefully working the arm into external rotation and working on bone especially inferiorly. The supraspinatus and infraspinatus were identified and debrided of significant tearing. Appropriate coagulation was achieved especially interiorly. The anatomic neck was cut using an oscillating saw with the humeral head bone brought back table in case there was a need for future bone grafting. The proximal humerus was delivered from the wound with adduction and external rotation. The proximal humeral protection plate was used to provisionally co nfirm suture cup and glenosphere size. Reamers were started appropriately posterior to the bicipital groove taking care to maintain in line approach with the humeral canal. Sequential reaming was done from size 5 up to size 6 and then partially size 7, which had rigid cortical fit. Next, the broaches were sequentially used to open the proximal humerus starting with a size 5 and going up to size 6 and sunk to the appropriate depth while maintaining approximately 25 degrees retroversion. There was good metaphyseal fit and rotational control of the proximal humerus with this size. The neutral offset guide was used to ream for the suture cup. Attention was then turned to the glenoid and retractors were placed and a circumferential release performed using the long head of the biceps remnant to remove soft tissue about the glenoid rim. Care was taken inferiorly to work on bone only between 5 and 7:00 o'clock and bluntly elevate tissues inferiorly. The VIP guide was placed on the glenoid and used to confirm placement and trajectory of the central guidepin. The guidepin was inserted and advanced just through the far cortex ensuring adequate central fixation length. The glenoid was prepared according to assessment services manager specifications for a standard baseplate and central screw. The baseplate was screwed onto the glenoid surface. The locking guide was then used to drill and place appropriately lengthed inferior, superior, and posterior screws with the anterior screw omitted due to short planned depth. The hrvl-gkp-vfeqrevyh reamer was used to confirm adequate peripheral reaming. The glenosphere was applied with the acoustical tile carpenters supervisor and then impacted to engage the Mathias taper. It was then locked with appropriate countersinking of the setscrew. The glenosphere was inspected and found to have good fit, appropriate positioning, and no soft tissue or bony impingement. Attention was then turned back to the proximal humerus. The humeral trial cup was connected. Trialing was commenced with +3 mm liner. The shoulder was reduced and taken through range of motion. Trial components were built up to +6 mm spacer and +3 mm liner to achieve good stability and appropriate tension on the deltoid and conjoined tension. The trial components were removed from the proximal humerus. The wound was copiously irrigated with normal saline. The the proximal humeral stem and suture cup were assembled and brought over the proximal humerus. A small amount of vancomycin powder was distributed in the proximal humerus. The humeral component and suture cup were impacted into place. The +6 mm trial liner was added, the shoulder was reduced to easily, it was removed and decision made to go with the +9 mm construct. The final spacer and liner were then connected, and range of motion, stability, and tension confirmed to be excellent. The shoulder was copiously irrigated with Betadine and normal saline. Vancomycin powder was distributed deeply about the shoulder and through subcutaneous tissues. The deltopectoral interval was approximated 2-0 Monocryl burying the cephalic vein. Subcutaneous tissue was irrigated then closed using 2-0 Monocryl in a buried interrupted fashion. Skin was closed using 3-0 Monocryl in a buried subcuticular fashion. Skin glue was applied to the incision. A silver impregnated bandage was placed over the incision. The extremity was placed into a shoulder immobilizer. The patient awoke from anesthesia without complication and was taken to the recovery room in stable condition.
[2023-12-25] MEDS: ceFAZolin 2 GM/50 ML BAG IVPB (08:08)
--- NOTE | 2023-12-25 08:12 | ANES.NERVE_ITS ---
Nerve Block Single Injection Procedure Date and Time Date Performed: 12/25/23 Procedure Start: 07:25 Location Where Procedure Performed Procedure Location: Day Surgery Unit Reason Performed: Postoperative Analgesia Requesting Provider: Otis Fishman Timeout Performed Timeout Performed: Yes Monitoring Used ECG, Blood Pressure and SpO2 Sterility Sterility: Hand Hygiene, Surgical Cap, Surgical Mask, Sterile Gloves and Chlorhexidine Sedation Given During Procedure Sedation Given (Indicate Dose Given): No Sedation given Patient Mental Status Patient Mental Status: Awake Nerve Block 1st Nerve Block: Laterality: Right Block Type: Interscalene Ultrasound Image Saved?: Yes Needle / Catheter Used: 100mm SonoPlex II Local Anesthetic Bolus (Indicate Dose Given): Lidocaine used for local inf iltration of skin, Injected in 3-5ml increments after negative blood aspiration, Bupivacaine 0.5% Dose:: 10 ml and Exparel Dose:: 10 ml Additives (Indicate Dose Given): Normal Saline (hydrodissection) Ultrasound: Sterile probe cover and gel used Nerve Stimulator: Supplement to Ultrasound use and No twitch or parasthesia noted < 0.5 mA Paresthesia: None Procedure Tolerated: No Complications and Patient tolerated well Procedure Outcome: Successful Performed By: Augustin Saini
[2023-12-25] MEDS: TRANEXAMIC ACID/SOD. CHL. 1,000 MG/100 ML BAG 600 MG IVPB (08:25)
[2023-12-25] MEDS: Bupivacaine 0.25% Pres-Free W/EPI 30 ML VIAL (08:50)
--- NOTE | 2023-12-25 11:02 | DI.RAD_ITS ---
Exam(s) XR SHOULDER RT COMPLETE 2+V EXAM: XR SHOULDER RT COMPLETE 2+V INDICATION: Shoulder Arthritis. COMPARISON: CT CT UPPER EXTREMITY RT WO from 10/31/2023 TECHNIQUE: 2D digital imaging was performed. Two views. FINDINGS: Status post placement of reverse shoulder prosthesis. The alignment appears satisfactory. Residual postsurgical air in the soft tissues. DATA REPOSITORY: RADIATION DOSE DELIVERED:
[2023-12-25] MEDS: ceFAZolin 1 GM/50 ML BAG IVPB (11:29)
[2023-12-25] MEDS: Lactobacillus Acidophilus CAP 1 CAP PO (12:42)
[2023-12-25] MEDS: Droperidol 5 MG/2 ML VIAL 0.625 MG IVP (12:59)
--- NOTE | 2023-12-25 13:55 | W.ANESPOSTOP ---
Postoperative Evaluation Date, Time and Location Date Performed: 12/25/23 Time Performed: 12:08 Patient Location: Day Surgery Unit Vital Signs Most Recent Imported Vital Signs: Most Recent Vital Signs Temp Pulse Resp BP Pulse Ox 36.2 C L 50 L 16 153/60 H 98 12/25/23 12:06 12/25/23 12:06 12/25/23 12:06 12/25/23 12:06 12/25/23 12:06 Pain Score Most Recent Pain Score: Most Recent Pain Score Pain Level 0 12/25/23 13:00 Assessment Mental Status: Awake (Alert & Oriented to Patient Baseline) Airway and Respiratory Function: Patent airway with normal (patient baseline) respiratory exam Cardiovascular Function: Hemodynamically Stable Hydration Status: Adequately Hydrated Nausea & Vomiting: Active Nausea or Vomiting Present Nausea and Vomiting Management: Other (Patient with a short bout of nausea and vomiting. Now stating no issue. Refuses medication. ) Pain: Pt. Denies Any Pain Peripheral Nerve Block: Regional nerve block not resolved at time of post operative discharge
== END 2023-12-25 13:45 | disposition home or self-care (01) ==
PROVIDERS: PCP Nurse Practitioner Family; Visit Provider Student in an Organized Health Care Education/Training Program
PROC: (CPT 23472; principal; 2023-12-25 07:30)
DX: M19.011 Primary osteoarthritis, right shoulder (principal); M75.21 Bicipital tendinitis, right shoulder
CPT/HCPCS: 23472; 23430; C1713; 76942; 73030; C9290; J0131; J0665; J0690; J1100; J1790; J1885; J2001; J2371; J2704; J3370

== ENCOUNTER 2024-01-06 15:29 | Outpatient (CLI) | payer OTHER, SELFPAY ==
--- NOTE | 2024-01-06 09:45 | DI.RAD_ITS ---
Exam(s) XR SHOULDER RT COMPLETE 2+V EXAM: XR SHOULDER RT COMPLETE 2+V INDICATION: f/u surgery. COMPARISON: CR XR SHOULDER RT COMPLETE 2+V from 12/25/2023 TECHNIQUE: 2D digital imaging was performed. Two views. FINDINGS: Stable alignment of reverse shoulder prosthesis. No abnormal surrounding lucencies DATA REPOSITORY: RADIATION DOSE DELIVERED:
== END 2024-01-06 15:30 | disposition home or self-care (01) ==
LOC: DIORS 15:29
PROVIDERS: PCP Nurse Practitioner Family; Visit Provider Student in an Organized Health Care Education/Training Program
DX: Z96.611 Presence of right artificial shoulder joint; Z47.1 Aftercare following joint replacement surgery
CPT/HCPCS: 73030

== ENCOUNTER → 2024-03-09 09:48 | Outpatient (BNVA) | payer OTHER, SELFPAY | PROVIDERS: PCP Nurse Practitioner Family; Visit Provider Student in an Organized Health Care Education/Training Program | DX: Z47.1 Aftercare following joint replacement surgery (principal); Z96.611 Presence of right artificial shoulder joint | CPT/HCPCS: 99024 ==

== ENCOUNTER 2024-05-11 15:53 | Outpatient (CLI) | payer MEDICARE, SELFPAY ==
--- NOTE | 2024-05-11 10:00 | DI.RAD_ITS ---
Exam(s) XR SHOULDER RT COMPLETE 2+V EXAM: XR SHOULDER RT COMPLETE 2+V CLINICAL HISTORY: F/U RIGHT RTSA. TECHNIQUE: 2D digital imaging was performed. Two images were obtained. Y and Grashey views were obt ained. COMPARISON: CR XR SHOULDER RT COMPLETE 2+V from 01/06/2024 FINDINGS: BONES: There are stable post operative changes of a right reverse total shoulder arthroplasty present . No fracture or dislocation. JOINTS: The orthopedic hardware is in good position. No evidence of hardware loosening. SOFT TISSUE: Normal. IMPRESSION: Stable right reverse total shoulder arthroplasty. DATA REPOSITORY: RADIATION DOSE DELIVERED:
== END 2024-05-11 15:54 | disposition home or self-care (01) ==
LOC: DIORS 15:53
PROVIDERS: PCP Nurse Practitioner Family; Referring Provider Nurse Practitioner Family; Visit Provider Student in an Organized Health Care Education/Training Program
DX: Z47.1 Aftercare following joint replacement surgery (principal); Z96.611 Presence of right artificial shoulder joint
CPT/HCPCS: 99213; 73030

== ENCOUNTER → 2024-07-22 13:02 | Outpatient (BNVA) | payer MEDICARE, SELFPAY | PROVIDERS: PCP Nurse Practitioner Family; Visit Provider Internal Medicine Cardiovascular Disease | DX: R07.9 Chest pain, unspecified (principal); I25.118 Atherosclerotic heart disease of native coronary artery with other forms of angina pectoris | CPT/HCPCS: 99213 ==

== ENCOUNTER 2024-09-13 04:00 | Outpatient (CLI) | payer MEDICARE, SELFPAY ==
[2024-09-13 12:27] LABS: ALT 24 U/L (14-59); AST 27 U/L (15-37); Albumin 4.1 g/dL (3.4-5.0); Alkaline Phosphatase 91 U/L (46-116); Anion Gap 8.4 mmol/L (3-11); BUN 29 mg/dL (7-18); Bilirubin, Total 0.6 mg/dL (0.2-1.0); CO2 26.6 mmol/L (21.0-32.0); CREATININE 1.3 mg/dL (0.55-1.02); Calculated LDL 86 mg/dL (<100); Chloride 104 mmol/L (98-107); Cholesterol 158 mg/dL (<200); Estimated GFR 42.88 (mL/min/1.73m2); Glucose 121 mg/dL (74-106); HDL Cholesterol 44 mg/dL (>or=50); Sodium 139 mmol/L (136-145); Total Protein 7.3 g/dL (6.4-8.2); Triglyceride 143 mg/dL (<150)
== END 2024-09-13 04:01 | disposition home or self-care (01) ==
LOC: LOS 04:00
PROVIDERS: PCP Nurse Practitioner Family; Visit Provider Nurse Practitioner Family
DX: I25.118 Atherosclerotic heart disease of native coronary artery with other forms of angina pectoris (principal); E11.9 Type 2 diabetes mellitus without complications
CPT/HCPCS: 36415; 80053; 80061

== ENCOUNTER 2024-10-06 02:50 | Outpatient (CLI) | payer MEDICARE, SELFPAY ==
--- NOTE | 2024-10-06 12:41 | DI.MAMMO_ITS ---
Exam(s) MAMMO SCREENING EXAM: MAMMO SCREENING CLINICAL HISTORY: screening,Z12.39 TECHNIQUE: Bilateral full field digital CC and MLO mammographic images were obtained with 3D tomosyn thesis and utilizing computer aided detection (CAD). COMPARISON: Comparison is made with prior examinations. FINDINGS: Masses/Architectural Distortion: No suspicious masses or areas of architectural distortion are presen t. Microcalcifications: No suspicious pleomorphic-type are seen. Skin Thickening/Nipple Retraction: None. IMPRESSION: 1. No significant interval change with no specific features of malignancy noted. 2. Unless there is more urgent need, screening mammography is recommended, as per [employer] guidelines. BI-RADS Category 1 - Negative Breast Density - Category B - There are scattered areas of fibroglandular density. Breast density Category C or D implies that the patient has dense breast tissue. Dense breast tissue can make it harder to find cancer on a mammogram. Dense breast tissue is also associated with an incr eased risk of breast cancer. This information about the result of the mammogram report was provided to the patient to raise their awareness. Use this report when you speak with the patient about their risks for breast cancer, which includes their family history. At that time, you may recommend additional screening tests (Ultrasoun d or MRI) as these tests may add significant information. A negative radiographic report should not delay biopsy if a dominant or clinically suspicious mass is present. Up to ten percent of cancers are not identified on mammography. A negative report may reinforce clinical impression. Adenosis and dense breasts may obscure an underlying neoplasm. False positive reports average 6 to 10%. Patient will receive a letter notifying them of these results.
== END 2024-10-06 03:10 ==
LOC: DI 02:50
PROVIDERS: PCP Nurse Practitioner Family; Visit Provider Nurse Practitioner Family
DX: Z12.31 Encounter for screening mammogram for malignant neoplasm of breast (principal); R92.323 Mammographic fibroglandular density, bilateral breasts
CPT/HCPCS: 77063; 77067